=== PATIENT | female | born 1975 | race Caucasian/White ===

== ENCOUNTER 2016-11-23 03:35 | Emergency (ER) | payer MEDICAID, OTHER ==
[~2016-11-23] VITALS: Ht 157.5 cm; Wt 72.7 kg
[2016-11-23 03:39] VITALS: Ht 157.5 cm; Wt 72.7 kg
[2016-11-23] MEDS ORDERED: IBUP200C11 PO (04:30)
[2016-11-23] MEDS ORDERED: HYDROCODONE/APAP (5/325) TAB PO ONE (04:30)
--- NOTE | 2016-11-23 04:31 | ERD ---
ER Documentation Chief Complaint Date/Time DATE: 11/23/16 TIME: 04:29 Chief Complaint INCREASE RT KNEE PAIN X2 WEEKS. DENIES FALL OR TRAUMA HPI 41-year-old female presents here in emergency department for complaints of right knee pain that started 2 weeks ago, worse today. Patient discussed the pain as throbbing pain, 8/10 scale, as was upon movement. Patient denies any numbness or tingling. Patient took Advil for pain with mild relief. Patient denies any fever or chills. ROS All systems reviewed and are negative except as per history of present illness. Medications Home Meds Reported Medications Ibuprofen* (Advil*) Unknown Strength Capsule, PO Q6H Y for PAIN, CAP 11/23/16 Allergies Allergies: Coded Allergies: No Known Allergy (Unverified , 11/23/16) PMhx/Soc Medical and Surgical Hx: pt denies Medical Hx, pt denies Surgical Hx Hx Alcohol Use: No Hx Substance Use: No Hx Tobacco Use: No Smoking Status: Never smoker FmHx Family History: No coronary disease, No diabetes, No other Physical Exam Vitals Vital Signs Date Time Temp Pulse Resp B/P Pulse Ox O2 Delivery O2 Flow Rate FiO2 11/23/16 03:39 98.7 97 18 134/60 96 Physical Exam GENERAL: The patient is well developed and appropriate for usual state of health, in no apparent distress. CHEST: Clear to auscultation bilaterally. There are no rales, wheezes or rhonchi. HEART: Regular rate and rhythm. No murmurs, clicks, rubs or gallops. No S3 or S4. ABDOMEN: Soft, nontender and nondistended. Good bowel sounds. No rebound or guarding. No gross peritonitis. No gross organomegaly or masses. No Ferguson sign or McBurney point tenderness. BACK: No midline or flank tenderness. EXTREMITIES: Tenderness on palpation on the medial aspect of the right knee, mild swelling noted, able to do full range of motion without any restriction. Equal pulses bilaterally. ful Range of motion of other joints of the body. Grossly neurovascularly intact. NEURO: Alert and oriented. Cranial nerves 2-12 intact. Motor strength in all 4 extremities with 5/5 strength. Sensation grossly intact. Normal speech and gait. SKIN: There is no apparent rash or petechia. The skin is warm and dry. HEMATOLOGIC AND LYMPHATIC: There is no evidence of excessive bruising or lymphedema. No gross cervical, axillary, or inguinal lymphadenopathy. Results 24 hrs Current Medications Medications (Trade) Dose Ordered Sig/Rosa Route PRN Reason Start Time Stop Time Status Last Admin Dose Admin Acetaminophen/ Hydrocodone Bitart (Friendly (5/325)) 1 tab ONCE ONCE PO 11/23/16 04:30 11/23/16 04:31 DC 11/23/16 04:15 Patient was given medication for pain here in emergency department, after treatment, patient verbalized feeling much better. Patient's pain is improved. PROCEDURE: RIGHT knee x-ray CLINICAL INDICATION: Right knee pain TECHNIQUE: AP, lateral and oblique views of the knee were obtained. COMPARISON: None FINDINGS: No acute fracture or dislocation seen. Minimal osteophytic spurring arising from the articular surface of the patella. Appearance of small soft tissue calcification anterior to the patella. Mild subcutaneous edema anterior to the patella and patellar tendon. IMPRESSION: Mild subcutaneous edema anterior to patella and patellar tendon. Please see above. RPTAT: HJES .Arjun Dejesus MD, MD Date Time Electronically viewed and signed by .Arjun Dejesus MD, MD on 11/23/2016 04:35 .S/ CC: FAY OLVERA BEVELER After receiving patients xray report, a knee immobilizer was applied on the patients right knee. After application of the splint, patient has intact sensation and circulation on distal area of the affected joint. Patient does not complain of numbness or tingling after application of the splint. Patient tolerated procedure well. Crutches was given afterwards Procedures/MDM Medical Decision Making: Patient's pain is most likely consistent with a osteoarthritic changes noted in the right knee causing some swelling. There is no suspicion for neurovascular compromise. Patient has intact sensation and circulation of the affected extremity. There is low suspicion for septic arthritis. Patient does not have any fever. Radiology exams of the affected area does not show any fracture or dislocation. Disposition: Home. Patient is given prescription for ibuprofen for pain, Friendly for severe pain. Patient was advised to elevate the affected area and apply ice on affected area. Patient was advised that if symptoms are worse, numbness, tingling, high fever, unable to move joint, worsening symptoms, to return to emergency department immediately. Otherwise, patient is advised to follow up with the primary care doctor in 5-7 days for reevaluation of symptoms. Disclaimer: Inadvertent spelling and grammatical errors are likely due to EHR/ dictation software use and do not reflect on the overall quality of patient care. Also, please note that the electronic time recorded on this note does not necessarily reflect the actual time of the patient encounter. Departure Diagnosis: Primary Impression: Knee pain Chronicity: acute Laterality: right Qualified Code: M25.561 - Acute pain of right knee Additional Impression: Osteoarthritis Osteoarthritis location: knee Osteoarthritis type: unspecified Laterality: right Qualified Code: M17.11 - Osteoarthritis of right knee, unspecified osteoarthritis type Condition: Stable Patient Instructions: Knee Pain, Uncertain Cause, Osteoarthritis FAY OLVERA NP Nov 23, 2016 04:31
--- NOTE | 2016-11-23 04:36 | RADRPT ---
PROCEDURE: RIGHT knee x-ray CLINICAL INDICATION: Right knee pain TECHNIQUE: AP, lateral and oblique views of the knee were obtained. COMPARISON: None FINDINGS: No acute fracture or dislocation seen. Minimal osteophytic spurring arising from the articular surfa ce of the patella. Appearance of small soft tissue calcification anterior to the patella. Mild subcu taneous edema anterior to the patella and patellar tendon. IMPRESSION: Mild subcutaneous edema anterior to patella and patellar tendon. Please see above. RPTAT: HJES .Arjun Dejesus MD, MD Date Time Electronically viewed and signed by .Arjun Dejesus MD, MD on 11/23/2016 04:35 .S/
[2016-11-23] MEDS ORDERED: IBUP-1542 PO (05:01)
[2016-11-23] MEDS ORDERED: HYDR-902 PO (05:01)
== END 2016-11-23 05:02 | disposition home or self-care (01) ==
LOC: FTE 03:35
DX: M25.561 Pain in right knee (principal); M17.11 Unilateral primary osteoarthritis, right knee
CPT/HCPCS: 29505; 73562; Z7502; Z7610

== ENCOUNTER 2016-12-21 03:13 | Emergency (ER) | payer MEDICAID ==
[~2016-12-21] VITALS: Ht 162.6 cm; Wt 74.5 kg
[~2016-12-21 03:13] MED LIST: HYDR-902 PO; IBUP-1542 PO; IBUP200C11 PO
[2016-12-21 03:15] VITALS: Ht 162.6 cm; Wt 74.5 kg
[2016-12-21] MEDS ORDERED: ACET325T33 PO (06:36)
[2016-12-21] MEDS ORDERED: SODI30SP2 NS (06:36)
[2016-12-21] MEDS ORDERED: OSLT75C PO (06:36)
--- NOTE | 2016-12-21 07:00 | ERD ---
ER Documentation Chief Complaint Date/Time DATE: 12/21/16 TIME: 06:56 Chief Complaint cough, nasal DC, 9 weeks HPI Patient is a 41-year-old female presenting to emerge department with cough, nasal discharge, headache 3 days. Patient also reports she is 9 weeks with last menstrual period October 14, 2016. Patient is a A0. Denies any vaginal bleeding, vaginal discharge or pelvic pain. Patient's OB/ [facility] COOK is in the clinic on [place] and parthen[place] , however patient cannot remember the doctor's name. Patient has a dry nonproductive cough. Denies fevers or chills at home. No shortness of breath or difficulty breathing. Patient also has nasal discharge and headache. Patient states she has been unable to take any medications at home because she is "afraid" to take anything while . No sick contacts. No recent travel. ROS All systems reviewed and are negative except as per history of present illness. Medications Home Meds Active Scripts Sodium Chloride (Saline Nasal [place]) 30 Ml [place], 30 ML NS BID, #1 SPRAY Prov:JUN HIDALGO NP 12/21/16 Acetaminophen* (Tylenol*) 325 Mg Tablet, 1 TAB PO Q6 Y for PAIN AND OR ELEVATED TEMP, #20 TAB Prov:JUN HIDALGO NP 12/21/16 Oseltamivir Phosphate* (Tamiflu*) 75 Mg Capsule, 75 MG PO BID for 5 Days, CAP Prov:JUN HIDALGO NP 12/21/16 Hydrocodone/Acetaminophen ([place] 10-325 Tablet) 1 Each Tablet, 1 TAB PO Q6H Y for SEVERE PAIN LEVEL 7-10, #20 TAB Prov:FAY OLVERA NP 11/23/16 Ibuprofen* (Motrin*) 600 Mg Tab, 600 MG PO Q6H Y for PAIN AND OR ELEVATED TEMP, #30 TAB Prov:FAY OLVERA NP 11/23/16 Reported Medications Ibuprofen* (Advil*) Unknown Strength Capsule, PO Q6H Y for PAIN, CAP 11/23/16 Allergies Allergies: Coded Allergies: No Known Allergy (Unverified , 11/23/16) PMhx/Soc Medical and Surgical Hx: pt denies Medical Hx History of Surgery: Yes (C SECTION) Anesthesia Reaction: No Hx Neurological Disorder: No Hx Respiratory Disorders: No Hx Cardiac Disorders: No Hx Psychiatric Problems: No Hx Miscellaneous Medical Probl: No Hx Alcohol Use: No Hx Substance Use: No Hx Tobacco Use: No Smoking Status: Never smoker Physical Exam Vitals Vital Signs Date Time Temp Pulse Resp B/P Pulse Ox O2 Delivery O2 Flow Rate FiO2 12/21/16 03:15 99.7 97 20 107/67 97 Physical Exam Const: No acute distress, alert Head: Atraumatic Eyes: Normal Conjunctiva ENT: Normal External Ears, Nose and Mouth. Neck: Full range of motion..~ No meningismus. Resp: Clear to auscultation bilaterally. No wheezing, rhonchi or crackles. No stridor or labored breathing. Patient is talking in complete sentences. Cardio: Regular rate and rhythm, no murmurs Abd: Soft, non tender, non distended. Normal bowel sounds Skin: No petechiae or rashes Back: No midline or flank tenderness Ext: No cyanosis, or edema Neur: Awake and alert Psych: Normal Mood and Affect Procedures/MDM MDM: This is a 41-year-old female presenting to emergency department with cough , nasal discharge, headache 3 days. Patient is also with last menstrual period October 14, 2016. Patient believes she is about 9 weeks . Denies any vaginal bleeding, vaginal discharge or pelvic cramping. Physical exam is overall unremarkable. Patient is non-hypoxic. Lung exam reveals clear lungs to auscultation bilaterally. No wheezing. Patient is talking in complete sentences. No signs or symptoms of respiratory distress. Patient is afebrile and vital signs are stable. Low suspicion for pneumonia, pleural effusion, pneumothorax or acute UT. Differential diagnosis includes but not limited to URI, influenza, otitis media , otitis externa, asthma exacerbation, croup, bronchitis, bronchiolitis and costochondritis. Patient is appropriate for outpatient management and will be given prescription for Tylenol, Tamiflu and saline nasal spray. Instructed patient to follow-up with primary care provider in the next 2-3 days for reassessment and additional management. Return to ED for any high fever, chest pain, difficulty breathing, shortness breath, wheezing, vomiting, diarrhea, abdominal pain or any new or worsening symptoms. Patient verbalizes understanding. All questions answered at discharge. Kosovan translation used during this encounter. Patient discharged in compliance with [facility] treat and release policy. Disclaimer: Inadvertent spelling and grammatical errors are likely due to EHR/ dictation software use and do not reflect on the overall quality of patient care. Also, please note that the electronic time recorded on this note does not necessarily reflect the actual time of the patient encounter. Departure Diagnosis: Primary Impression: Bronchitis Condition: Stable Patient Instructions: Influenza (Flu) and , Preventing Common Respiratory Infections Referrals: [facility] Usted se mcgowan hecho un examen mdico de control que le indica que no est en chika condicin que requiera tratamiento urgente en el Departamento de Emergencia. Un estudio ms profundo y el tratamiento de smiley condicin pueden esperar sin ningn riesgo hasta que usted sea atendida/o en el consultorio de smiley mdico o chika cl yasmine. Es responsabilidad suya arreglar chika evelyne para el seguimiento del angel luis. MANEJO DE CONDICIONES NO URGENTES EN EL FUTURO 1) Si usted tiene un mdico de atencin primaria: Usted debera llamar a smiley mdico de atencin primaria antes de venir al departamento de emergencia. Despus de las horas de consultorio, smiley doctor o smiley asociado/a est disponible por telfono. El mdico o enfermero de cinthya en el servicio telefnico puede asesorarle por angel medio para atender el problema, o angel luis contrario se puede programar chika evelyne. 2) Si usted no tiene un mdico de atencin primaria: Llame al mdico o clnica de referencia que aparece abajo chung las horas de consultorio para hacer chika evelyne para que le vean. CLINICAS: [facility] [phone] [facility] [phone] [facility] [phone] [place] [phone] [address] [place] 684 [phone] [address] [facility] [phone] [facility] () Yanna se mcgowan hecho un examen mdico de control que le indica que no est en chika condicin que requiera tratamiento urgente en el Departamento de Emergencia. Un estudio ms profundo y el tratamiento de smiley condicin pueden esperar sin ningn riesgo hasta que usted sea atendida/o en el consultorio de smiley mdico o chika cl yasmine. Es responsabilidad suya arreglar chika evelyne para el seguimiento del angel luis. MANEJO DE CONDICIONES NO URGENTES EN EL FUTURO 1) Si usted tiene un mdico de atencin primaria: Usted debera llamar a smiley mdico de atencin primaria antes de venir al departamento de emergencia. Despus de las horas de consultorio, smiley doctor o smiley asociado/a est disponible por telfono. El mdico o enfermero de cinthya en el servicio telefnico puede asesorarle por angel medio para atender el problema, o angel luis contrario se puede programar chika evelyne. 2) Si usted no tiene un mdico de atencin primaria: Llame al mdico o condado institucions de referencia que aparece abajo chung las horas de consultorio para hacer chika evelyne para que le vean. SI USTED NO PUEDE PAGAR PARA GERARD UN MEDICO puede ir a: [facility] [id number] [place] [address] [facility] [address] [place] [address] [facility] [address] [place] [address] [facility] [address] [place] [address] Additional Instructions: Llame al doctor MAANA y whitney chika EVELYNE PARA DENTRO DE 2-3 PAUL.Dgale a la secretaria que nosotros le instruimos hacer esta evelyne.Avise o llame si smiley condicin se empeora antes de la evelyne. Regresa aqui si peor o no mejor. Vuelva a Ed para cualquier fiebre micky, dolor en el pecho, dificultad para respirar, respiracin entrecortada, sibilancias, vmitos, diarrea, dolor abdominal o cualquier sntoma nuevo o empeoramiento. JUN HIDALGO NP Dec 21, 2016 07:00
== END 2016-12-21 07:03 | disposition home or self-care (01) ==
LOC: FTE 03:13
DX: J40 Bronchitis, not specified as acute or chronic (principal)
CPT/HCPCS: 99283

== ENCOUNTER 2017-02-06 07:03 | Emergency (ER) | payer MEDICAID ==
[~2017-02-06] VITALS: Ht 167.6 cm; Wt 93.7 kg
[~2017-02-06 07:03] MED LIST changes: +ACET325T33 PO; +OSLT75C PO; +SODI30SP2 NS
[2017-02-06 07:09] VITALS: Ht 167.6 cm; Wt 93.7 kg
[2017-02-06] MEDS ORDERED: ACETAMINOPHEN 325 MG TAB PO ONE (07:30)
[2017-02-06 08:09] LABS: ADD UMIC YES; UR ASCORBIC ACID NEGATIVE (NEGATIVE); UR BACTERIA MODERATE /HPF (NONE SEEN); UR BILIRUBIN (Dip) NEGATIVE (NEGATIVE); UR BLOOD (Dip) NEGATIVE (NEGATIVE); UR CLARITY CLOUDY (CLEAR); UR COLOR YELLOW (YELLOW); UR GLUCOSE (Dip) NEGATIVE (NEGATIVE); UR KETONES (Dip) NEGATIVE (NEGATIVE); UR LEUKOCYTE ESTERASE (Dip) 3+ Leu/ul (NEGATIVE); UR MUCUS FEW /HPF (NONE SEEN); UR NITRITE (Dip) NEGATIVE (NEGATIVE); UR RBC 15 /HPF (0-5); UR SPECIFIC GRAVITY (Dip) 1.018 (1.003-1.030); UR SQUAMOUS EPITHELIAL CELL MANY /HPF (FEW); UR TOTAL PROTEIN (Dip) NEGATIVE (NEGATIVE); UR UROBILINOGEN (Dip) NEGATIVE (NEGATIVE)
[2017-02-06] MEDS ORDERED: CEPHALEXIN 500 MG CAP PO ONE (08:30)
--- NOTE | 2017-02-06 09:28 | RADRPT ---
PROCEDURE: US OB. CLINICAL INDICATION: Low CASE , pain TECHNIQUE: Transabdominal views of the pelvis are available for review. COMPARISON: No prior studies are available for comparison. FINDINGS: There is a single intrauterine gestation in a vertex/variable position. The heart rate is not ed at 131 bpm. The placenta is anterior. There is no evidence of placental abruption. The CASE measures 9.4 cm. RPTAT: AA IMPRESSION: Normal CASE. Anterior placenta with no evidence of abruption. .Faisal Lopez MD, MD Date Time Electronically viewed and signed by .Faisal Lopez MD, on 02/06/2017 09:28 .S/
[2017-02-06] MEDS ORDERED: ACET-141 PO (09:40)
[2017-02-06] MEDS ORDERED: CEPH500C PO (09:40)
--- NOTE | 2017-02-06 09:44 | ERD ---
ER Documentation Chief Complaint Chief Complaint lower back pain, Rodriguez, 14wks , denies bleeding lmp 10/26/16 HPI This 41-year-old female presents with a one-day history of low back pain. She also felt a tactile fever at home has bitemporal headache. She is approximately 14 weeks by dates. She denies any dysuria, abdominal pain or bleeding. She is G4 para 3. Cough or sore throat or additional symptoms. ROS All systems reviewed and are negative except as per history of present illness. Medications Home Meds Active Scripts Acetaminophen* (Acetaminophen*) 500 MG Extra Strength Tablet, 500 MG PO Q4H Y for PAIN AND OR ELEVATED TEMP, #20 TAB Prov:MONTY ALVES MD 02/06/17 Cephalexin* (Cephalexin*) 500 Mg Capsule, 500 MG PO Q6 for 5 Days, #28 CAP Prov:MONTY ALVES MD 02/06/17 Sodium Chloride (Saline Nasal [place]) 30 Ml [place], 30 ML NS BID, #1 SPRAY Prov:JUN HIDALGO NP 12/21/16 Acetaminophen* (Tylenol*) 325 Mg Tablet, 1 TAB PO Q6 Y for PAIN AND OR ELEVATED TEMP, #20 TAB Prov:JUN HIDALGO NP 12/21/16 Oseltamivir Phosphate* (Tamiflu*) 75 Mg Capsule, 75 MG PO BID for 5 Days, CAP Prov:JUN HIDALGO NP 12/21/16 Hydrocodone/Acetaminophen ([place] 10-325 Tablet) 1 Each Tablet, 1 TAB PO Q6H Y for SEVERE PAIN LEVEL 7-10, #20 TAB Prov:FAY OLVERA NP 11/23/16 Ibuprofen* (Motrin*) 600 Mg Tab, 600 MG PO Q6H Y for PAIN AND OR ELEVATED TEMP, #30 TAB Prov:FAY OLVERA NP 11/23/16 Reported Medications Ibuprofen* (Advil*) Unknown Strength Capsule, PO Q6H Y for PAIN, CAP 11/23/16 Allergies Allergies: Coded Allergies: No Known Allergy (Unverified , 02/06/17) PMhx/Soc History of Surgery: Yes (C SECTION) Anesthesia Reaction: No Hx Neurological Disorder: No Hx Respiratory Disorders: No Hx Cardiac Disorders: No Hx Psychiatric Problems: No Hx Miscellaneous Medical Probl: No Hx Alcohol Use: No Hx Substance Use: No Hx Tobacco Use: No Smoking Status: Never smoker Physical Exam Vitals Vital Signs Date Time Temp Pulse Resp B/P Pulse Ox O2 Delivery O2 Flow Rate FiO2 02/06/17 07:09 98.4 90 18 94/57 97 Physical Exam Const: [] Alert, [id number]. Head: Atraumatic Eyes: Normal Conjunctiva ENT: Normal External Ears, Nose and Mouth. Neck: Full range of motion..~ No meningismus. Resp: Clear to auscultation bilaterally Cardio: Regular rate and rhythm, no murmurs Abd: Soft, non tender, non distended. Normal bowel sounds Skin: No petechiae or rashes Back: No midline or flank tenderness. Tenderness in the right L4-5 paraspinous area. Ext: No cyanosis, or edema Neur: Awake and alert Psych: Normal Mood and Affect Results 24 hrs Laboratory Tests Test 02/06/17 07:30 Urine Color YELLOW Urine Clarity CLOUDY Urine pH 5.0 Urine Specific [place] 1.018 Urine Ketones NEGATIVEmg/dL Urine Nitrite NEGATIVEmg/dL Urine Bilirubin NEGATIVEmg/dL Urine Urobilinogen NEGATIVEmg/dL Urine Leukocyte Esterase 3+Gustavo/ul Urine Microscopic RBC 15/HPF Urine Microscopic WBC 102/HPF Urine Squamous Epithelial Cells MANY/HPF Urine Bacteria MODERATE/HPF Urine Mucus FEW/HPF Urine Hemoglobin NEGATIVEmg/dL Urine Glucose NEGATIVEmg/dL Urine Total Protein NEGATIVEmg/dl Current Medications Medications (Trade) Dose Ordered Sig/Rosa Route PRN Reason Start Time Stop Time Status Last Admin Dose Admin Acetaminophen (Tylenol Tab) 650 mg ONCE ONCE PO 02/06/17 07:30 02/06/17 07:31 DC 02/06/17 07:33 Cephalexin (Keflex) 500 mg ONCE ONCE PO 02/06/17 08:30 02/06/17 08:31 DC 02/06/17 08:25 Procedures/MDM Urine shows white blood cells nitrates and hemoglobin. His negative glucose. Second trimester ultrasound shows normal-appearing second trimester with anterior placenta, otherwise no acute findings. Patient was given Keflex and Tylenol here in the ED. Patient has signs of UTI low back pain. Patient does not have flank pain current fever signs or symptoms suggest sepsis or pyelonephritis. She will treated with instructions for fluids, Tylenol Keflex at home and primary care follow-up and return precautions. No signs or symptoms of ectopic , signs or symptoms to suggest appendicitis, acute abdomen, additional complications but patient should recheck for new or worsening symptoms as directed. The patient was stable with no new complaints during the ER course. Clinically, there is no current evidence to suggest meningitis, sepsis, acute abdomen, pneumonia, acute coronary syndrome, pulmonary embolism, or any other emergent condition appearing to require further evaluation or hospitalization. The patient should certainly return for any new or worsening symptoms per the aftercare instructions. They should otherwise follow-up with her primary care doctor for reevaluation this week. Departure Diagnosis: Primary Impression: UTI (urinary tract infection) Urinary tract infection type: site unspecified Hematuria presence: without hematuria Qualified Code: N39.0 - Urinary tract infection without hematuria, site unspecified Additional Impression: Back pain Back pain location: low back pain Chronicity: acute Back pain laterality: right Sciatica presence: without sciatica Qualified Code: M54.5 - Acute right-sided low back pain without sciatica Condition: Stable Patient Instructions: Understanding Urinary Tract Infections (UTIs), Back Pain (Acute Or Chronic) Additional Instructions: ORINA TIOENE INFECCION. ULTRASONIDO NORMAL. LISETTE LIQUIDO / AGUA EN CASA. . Cheque otro vez con smiley doctor primario en el proximo carlson or regresa para mas o nueva simptomas. MONTY ALVES MD Feb 06, 2017 09:44
== END 2017-02-06 09:54 | disposition home or self-care (01) ==
LOC: FTE 07:03
DX: O23.42 Unspecified infection of urinary tract in pregnancy, second trimester (principal); M54.5 Low back pain; Z3A.14 14 weeks gestation of pregnancy
CPT/HCPCS: 76805; 81001; Z7502; Z7610

== ENCOUNTER 2017-06-17 10:40 | Outpatient (CLI) | END 2017-06-17 13:35 | disposition home or self-care (01) ==

== ENCOUNTER 2017-07-14 18:20 | Inpatient (IN) | END 2017-07-20 19:00 | disposition home or self-care (01) | DRG 765 ==

== ENCOUNTER 2018-04-22 15:28 | Inpatient (IN) | payer MEDICAID ==
[~2018-04-22] VITALS: Ht 157.5 cm; Wt 84.9 kg
[~2018-04-22 15:28] MED LIST changes: -ACET325T33 PO; +CIPR500T4 PO; -HYDR-902 PO; -IBUP-1542 PO; +IBUP-1544 PO; -IBUP200C11 PO; +METF500T3 PO; +METR500T PO; -OSLT75C PO; +PREN-6 PO; -SODI30SP2 NS; +SULF-182 PO
[2018-04-22] MEDS ORDERED: ASPIRIN 325 MG TAB PO STA (16:13)
[2018-04-22] MEDS ORDERED: SOD CHLORIDE 0.9% 1,000 ML IV STA (16:13)
[2018-04-22] MEDS ORDERED: IOHEXOL 100 ML ONE (17:11)
[2018-04-22] MEDS ORDERED: SOD CHLORIDE 0.9% 100 ML ONE (17:11)
[2018-04-22] MEDS ORDERED: HYDROmorphONE 1 MG/ML SYG IV STA (17:52)
[2018-04-22] MEDS ORDERED: DIPHENHYDRAMINE 50 MG INJ IV STA (17:52)
[2018-04-22] MEDS ORDERED: METOCLOPRAMIDE 10 MG INJ IV STA (17:52)
[2018-04-22] MEDS ORDERED: SOD CHLORIDE 0.9% 1,000 ML IV SCH (17:56)
[2018-04-22] MEDS ORDERED: ACETAMINOPHEN 325 MG TAB PO PRN (18:00)
[2018-04-22] MEDS ORDERED: ONDANSETRON 4 MG INJ IV PRN ×2 (18:00→18:30)
[2018-04-22] MEDS ORDERED: DEXTROSE 5%-0.45% NACL 1,000 ML IV SCH (18:02)
--- NOTE | 2018-04-22 18:02 | ERD ---
ER Documentation Chief Complaint Chief Complaint right side face/body weakness, facial droop, head pain x last night HPI This is a 42-year-old female who is here for right sided face arm and leg symptoms. She has had the onset of symptoms last night at 7 PM. She said that she had right facial tingling then became right facial weakness and she says she was unable to close her eye. On review she does have excessive tearing from the right eye, altered taste, had hyperacusis yesterday but not today in the right ear. But she is also saying that her right arm and leg are also tingling and feel weak. She feels pressure in the occipital region of her head. No prior stroke history or migraine history. ROS All systems reviewed and are negative except as per history of present illness. Medications Home Meds Discontinued Reported Medications Vits #93-Iron Fum-FA ( Formula) 1 Each Tablet, 1 TAB PO DAILY, TAB 06/17/17 Discontinued Scripts Metformin* (Glucophage* XR) 500 Mg Tab.sr.24h, 500 MG PO BID WITH MEALS, #120 6 Refills Prov:PINKY EASTON MD 07/20/17 Metronidazole* (Flagyl*) 500 Mg Tablet, 500 MG PO Q12, #14 TAB 0 Refills Prov:PINKY EASOTN MD 07/20/17 Ciprofloxacin Hcl* (Ciprofloxacin Hcl*) 500 Mg Tablet, 500 MG PO BID@06,18, #14 TAB 0 Refills Prov:PINKY EASTON MD 07/20/17 Ibuprofen* (Ibuprofen*) 800 Mg Tablet, 800 MG PO Q8, #60 TAB 0 Refills Prov:PINKY EASTON MD 07/20/17 Sulfamethoxazole/Trimethoprim (Sulfamethoxazole-Tmp Ds Tablet) 1 Each Tablet, 1 TAB PO BID, #14 TAB 0 Refills Prov:PINKY EASTON MD 07/20/17 Allergies Allergies: Coded Allergies: No Known Allergy (Unverified , 04/22/18) PMhx/Soc History of Surgery: Yes (C SECTION) Anesthesia Reaction: No Hx Neurological Disorder: No Hx Respiratory Disorders: No Hx Cardiac Disorders: No Hx Psychiatric Problems: No Hx Miscellaneous Medical Probl: No Hx Alcohol Use: No Hx Substance Use: No Hx Tobacco Use: No Smoking Status: Never smoker FmHx Family History: No coronary disease Physical Exam Vitals Vital Signs Date Temp Pulse Resp B/P (MAP) Pulse Ox O2 O2 Flow FiO2 Time Delivery Rate 04/22/18 Nasal 17:31 Cannula 04/22/18 98.7 103 22 104/59 97 Room Air 16:02 (74) 04/22/18 98.7 108 22 116/66 97 15:32 (83) Physical Exam Const: Well-developed, well-nourished Head: Atraumatic, normocephalic Eyes: Normal Conjunctiva, PERRLA, EOMI, normal sclera, no nystagmus ENT: Normal External Ears, Nose and Mouth, moist mucus membranes, there is right facial weakness with forehead involvement, inability to close the right eye, right facial subjective decreased sensation. Neck: Full range of motion. No meningismus, no lymphadenopathy. Resp: Clear to auscultation bilaterally, no wheezing, rhonchi, rales Cardio: Regular rate and rhythm, no murmurs, S1 S2 present Abd: Soft, non tender x 4, non distended. Normal bowel sounds, no guarding or rebound, no pulsitile abdominal masses or bruits Skin: No petechiae or rashes, no ecchymosis , no maculopapular rash Back: No midline or flank tenderness Ext: No cyanosis, or edema, FROM x 4, normal inspection, neurovascularly intact x 4 Neur: Awake and alert, STR 5/5 x 2, sensation intact x 2, cerebellum intact, there is tingling to the right face arm and leg with some subjective heaviness strength 4 out of 5 on the right Psych: Normal Mood and Affect Result Diagram: 04/22/18 1615 04/22/18 1615 Results 24 hrs Laboratory Tests Test 04/22/18 16:15 White Blood Count 8.5 10^3/ul Red Blood Count 4.19 10^6/ul Hemoglobin 13.0 g/dl Hematocrit 38.7 % Mean Corpuscular Volume 92.4 fl Mean Corpuscular Hemoglobin 31.0 pg Mean Corpuscular Hemoglobin Concent 33.6 g/dl Red Cell Distribution Width 12.5 % Platelet Count 292 10^3/UL Mean Platelet Volume 10.7 fl Immature Granulocytes % 0.400 % Neutrophils % 56.2 % Lymphocytes % 31.3 % Monocytes % 7.0 % Eosinophils % 4.7 % Basophils % 0.4 % Nucleated Red Blood Cells % 0.0 /100WBC Immature Granulocytes # 0.030 10^3/ul Neutrophils # 4.8 10^3/ul Lymphocytes # 2.7 10^3/ul Monocytes # 0.6 10^3/ul Eosinophils # 0.4 10^3/ul Basophils # 0.0 10^3/ul Nucleated Red Blood Cells # 0.0 10^3/ul Prothrombin Time 11.9 Sec Prothrombin Time Ratio 0.9 INR International Normalized Ratio 0.87 Activated Partial Thromboplast Time 26.0 Sec Sodium Level 141 mmol/L Potassium Level 3.7 mmol/L Chloride Level 110 mmol/L Carbon Dioxide Level 26 mmol/L Anion Gap 5 Blood Urea Nitrogen 12 mg/dl Creatinine 0.81 mg/dl Est Glomerular Filtrat Rate mL/min > 60 mL/min Glucose Level 111 mg/dl Hemoglobin A1c 5.3 % Calcium Level 9.1 mg/dl Total Bilirubin 0.1 mg/dl Direct Bilirubin 0.00 mg/dl Indirect Bilirubin 0.1 mg/dl Aspartate Amino Transf (AST/SGOT) 26 IU/L Alanine Aminotransferase (ALT/SGPT) 25 IU/L Alkaline Phosphatase 83 IU/L Troponin I < 0.012 ng/ml Total Protein 7.8 g/dl Albumin 4.2 g/dl Globulin 3.60 g/dl Albumin/Globulin Ratio 1.16 Triglycerides Level 249 mg/dl Cholesterol Level 193 mg/dl LDL Cholesterol, Calculated 94 mg/dl HDL Cholesterol 49 mg/dl Cholesterol/HDL Ratio 3.9 RATIO Current Medications Medications Dose Sig/Rosa Start Time Status Last (Trade) Ordered Route PRN Stop Time Admin Dose Reason Admin Sodium 1,000 ml @ Q1H STAT 04/22/18 DC 04/22/18 Chloride 1,000 mls/hr IV 16:13 04/22/18 16:13 17:12 Aspirin 325 mg ONCE STAT 04/22/18 DC 04/22/18 (Aspirin) PO 16:13 04/22/18 16:13 16:17 IV Flush 10 ml STK-MED 04/22/18 DC (NS 10 ml) ONCE .ROUTE 17:11 04/22/18 17:12 Sodium 100 ml @ ud STK-MED 04/22/18 DC Chloride ONCE .ROUTE 17:11 04/22/18 17:12 Iohexol 100 ml @ ud STK-MED 04/22/18 DC ONCE .ROUTE 17:11 04/22/18 17:12 10 mg ONCE STAT 04/22/18 DC Metoclopramid IV 17:52 04/22/18 e HCl 17:53 (Reglan) 0.5 mg ONCE STAT 04/22/18 DC Hydromorphone IV 17:52 04/22/18 HCl 17:53 (Dilaudid) 25 mg ONCE STAT 04/22/18 DC Diphenhydrami IV 17:52 04/22/18 ne HCl 17:53 (Benadryl) Procedures/MDM Ordering MD: ELEUTERIO OBREGON DO Location: E/R Room/Bed: PROCEDURE: CT Brain without contrast. CLINICAL INDICATION: CVA. Right-sided numbness and weakness. TECHNIQUE: A CT of the brain was performed on a multidetector CT scanner utilizing axial sections from the skull base through the vertex without contrast. Images were reviewed on a high-resolution PACS workstation. Exam CTDI = 39.57 mGy and the DLP = 634.23 mGy-cm. DICOM images are available. One or more of the following dose reduction techniques were used: Automated exposure control. Adjustment of the mA and/or kV according to patient size. Use of iterative reconstruction technique. COMPARISON: None available FINDINGS: There is no evidence of intracranial hemorrhage, mass effect or midline shift. No abnormal intra-axial or extra-axial fluid collections are seen. The density of the brain is normal and the diamond/white matter differentiation is well preserved. The osseous structures are intact. The paranasal sinuses are clear. IMPRESSION: 1. No intracranial hemorrhage, mass effect or midline shift. No CT evidence for recent territorial infarct. If there is persistent clinical concern;recommend MRI brain for further evaluation. RPTAT: HHO .Ross Everett MD, Date Time Electronically viewed and signed by .Ross Everett MD, on 04/22/2018 16:49 .O/ CC: ELEUTERIO OBREGON DO [id number] Ordering MD: ELEUTERIO OBREGON DO Location: E/R Room/Bed: PROCEDURE: XR Chest. CLINICAL INDICATION: chest pain TECHNIQUE: Single AP view of the chest were obtained COMPARISON: 07/15/2017 FINDINGS: The heart and mediastinum are within normal limits. The pulmonary vasculature are unremarkable. The aorta is unremarkable. There is no lung consolidation, pleural effusion or pneumothorax. There is no acute osseous abnormality. IMPRESSION: No acute disease. RPTAT: AA .Monae Medina MD, MD Date Time Electronically viewed and signed by .Monae Medina MD, on 04/22/2018 16:55 .J/ CC: ELEUTERIO OBREGON DO [id number] EKG: Rate/Rhythm: Normal Sinus Rhythm,NL intervals QRS, ST, QT: NORMAL KS, QRS, QT] Impression: NORMAL EKG Patient shows no evidence of stroke on CT. Getting CT Aysha of brain and neck now and will need MRI. 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 Differential is stroke/TIA, vasculitis, complex migraine, or mass. Will admit for further workup The patient is not a TPA candidate because of the onset of time at 21 hours prior to my examination Departure Diagnosis: Primary Impression: CVA (cerebral vascular accident) CVA mechanism: unspecified Qualified Codes: I63.9 - Cerebral infarction, unspecified Condition: Stable ELEUTERIO OBREGON DO Apr 22, 2018 18:02
[2018-04-22] MEDS ORDERED: MAGNESIUM HYDROXIDE 30ML CUP PO PRN (18:30)
[2018-04-22] MEDS ORDERED: DOCUSATE SODIUM 100 MG CAP PO PRN (18:30)
[2018-04-22] MEDS ORDERED: NACL 0.9% 3 ML SYG IV SCH (18:30)
--- NOTE | 2018-04-22 18:50 | HP ---
Date/Time of Note Date/Time of Note DATE: 04/22/18 TIME: 18:45 Assessment/Plan VTE Prophylaxis SCD applied (from Nsg): Yes Pharmacological prophylaxis: NA/contraindicated Pharm contraindication: other (hemorrhagic conversion risk) Lines/Catheters IV Catheter Type (from Nrsg): Saline Lock Assessment/Plan Assessment/Plan 1. Questionable [place] palsy - patient has classic facial features of [place] palsy but unsure etiology - Will start Prednisone and Valacyclovir - Neurology consultation placed for further recommendations - CT head and CTA head and neck all negative for acute changes. - will add artificial tear for eye comfort 2. RUE/RLE weakness and numbness - Will check MRI given CT head and CTA head/neck negative - aspirin and statin on board - possible differential complex migraine, viral etiology, or CVA - PT/OT ordered - lipid, tsh, and A1c all within normal limits 3. Diet - regular 4. DVT ppx - SCD 5. Code status - Full 6. Disposition - Admit to telemetry for CVA workup Result Diagram: 04/22/18 1615 04/22/18 1615 Results 24hrs Laboratory Tests Test 04/22/18 16:15 White Blood Count 8.5 Red Blood Count 4.19 #L Hemoglobin 13.0 # Hematocrit 38.7 # Mean Corpuscular Volume 92.4 Mean Corpuscular Hemoglobin 31.0 Mean Corpuscular Hemoglobin Concent 33.6 Red Cell Distribution Width 12.5 Platelet Count 292 Mean Platelet Volume 10.7 H Immature Granulocytes % 0.400 Neutrophils % 56.2 Lymphocytes % 31.3 Monocytes % 7.0 Eosinophils % 4.7 Basophils % 0.4 Nucleated Red Blood Cells % 0.0 Immature Granulocytes # 0.030 Neutrophils # 4.8 Lymphocytes # 2.7 Monocytes # 0.6 Eosinophils # 0.4 Basophils # 0.0 Nucleated Red Blood Cells # 0.0 Prothrombin Time 11.9 Prothrombin Time Ratio 0.9 INR International Normalized Ratio 0.87 Activated Partial Thromboplast Time 26.0 Sodium Level 141 Potassium Level 3.7 Chloride Level 110 Carbon Dioxide Level 26 Anion Gap 5 Blood Urea Nitrogen 12 Creatinine 0.81 Est Glomerular Filtrat Rate mL/min > 60 Glucose Level 111 Hemoglobin A1c 5.3 Calcium Level 9.1 Total Bilirubin 0.1 L Direct Bilirubin 0.00 Indirect Bilirubin 0.1 Aspartate Amino Transf (AST/SGOT) 26 Alanine Aminotransferase (ALT/SGPT) 25 Alkaline Phosphatase 83 Troponin I < 0.012 Total Protein 7.8 Albumin 4.2 Globulin 3.60 H Albumin/Globulin Ratio 1.16 Triglycerides Level 249 H Cholesterol Level 193 LDL Cholesterol, Calculated 94 HDL Cholesterol 49 Cholesterol/HDL Ratio 3.9 HPI/ROS Admit Date/Time Admit Date/Time 04/22/18 1830 Hx of Present Illness 42 yo F with PMH gestational diabetes presented to ED with 3 day history of i ncreased watering of right eye since Tuesday that persisted into . She states she noticed worsening of her symptoms last night which included inability to close her eye, and perioral numbness and right sided facial droop noticeable when smiling. Patient was able to drive herself to the hospital but when she got here noticed weakness and numbness of her right upper and lower extremity. Patient states she has not had any recent illness, exposure to illness, recent travel, history of herpes infection, trauma to right side, or insect bites. Patient denies any chest pain, shortness of breath, dizziness, nausea, vomiting, abdominal pain, urinary issues, or swallowing difficulty. ROS All 12 systems reviewed and pertinent positives as per HPI. All others negative. Constitutional: No chills, No fatigue, No nausea Eyes: other (increased right sided lacrimation, inability to close eye); No discharge ENT: No congestion Respiratory: No pleuritic pain, No shortness of breath, No sputum, No wheezing Cardiovascular: No chest pain, No edema, No lightheadedness, No palpitations Gastrointestinal: No pain, No constipation, No diarrhea, No nausea, No vomiting Genitourinary: no complaints Musculoskeletal: No back pain, No restricted range of motion Skin: No bruising, No laceration, No rash Neurologic: focal-weakness, other (numbness RUE, RLE); No confusion, No dizziness, No headache, No syncope Endocrine: no complaints Lymphatic: no complaints Psychological: nl mood/affect Immunologic: no complaints PMH/Family/Social Past Medical History Medical History: no pertinent history Medications Current Medications Sodium Chloride 1,000 ml @ 80 mls/hr [id number] IV ; Start 04/22/18 at 17:56; Stop 04/23/18 at 06:25 Ondansetron HCl (Zofran Inj) 4 mg ER BRIDGE PRN IV NAUSEA/VOMITING; Start 04/22/18 at 18:00; Stop 04/23/18 at 17:59 Acetaminophen (Tylenol Tab) 650 mg ER BRIDGE PRN PO .MILD PAIN 1-3 OR TEMP; Start 04/22/18 at 18:00; Stop 04/23/18 at 17:59 Dextrose/Sodium Chloride 1,000 ml @ 75 mls/hr [id number] IV ; Start 04/22/18 at 18:02 IV Flush (NS 3 ml) 3 ml PER PROTOCOL IV ; Start 04/22/18 at 18:30 Ondansetron HCl (Zofran Inj) 4 mg Q6H PRN IV NAUSEA/VOMITING; Start 04/22/18 at 18:30 Acetaminophen (Tylenol Tab) 650 mg Q6H PRN PO .PAIN 1-3 OR TEMP; Start 04/22/18 at 18:30 Docusate Sodium (Colace) 100 mg Q12H PRN PO .CONSTIPATION; Start 04/22/18 at 18:30 Magnesium Hydroxide (Milk Of Mag) 30 ml DAILY PRN PO .CONSTIPATION; Start 04/22/18 at 18:30 Prednisone (Prednisone) 60 mg DAILY PO ; Start 04/22/18 at 18:30 Coded Allergies: No Known Allergy (Unverified , 04/22/18) Past Surgical History Past Surgical Hx: noncontributory Family History Significant Family History: no pertinent family hx Social History Alcohol Use: none Smoking Status: Never smoker Drug Use: none Exam/Review of Systems Vital Signs Vitals Vital Signs Date Temp Pulse Resp B/P (MAP) Pulse Ox O2 O2 Flow FiO2 Time Delivery Rate 04/22/18 98.7 98 19 115/60 100 Room Air 18:04 (78) Exam Exam General: Patient is pleasant currently lying in bed in no acute distress HEENT: Atraumatic, normocephalic. The pupils are equal, round and reactive. Extraocular motor are intact, right eye with increased lacrimation, unable to close right eyelid Neck: Supple with full range of motion. No rigidity or meningismus, Chest: Nontender Lungs: Clear to auscultation bilaterally no crackles rales or wheezing Heart: Normal S1-S2, Regular rhythm and rate. no murmurs Abdomen: Soft , nontender, nondistended , bowel sounds are present. No guarding no rebound tenderness , No masses or organomegaly. No costovertebral temporal angle mass Extremities: Normal to inspection, no edema no cyanosis Neurologic: Normal mental status, speech normal, cranial nerves II through XII are intact, except for VII, 4/5 RUE/RLE and R handgrip. 5/5 LUE, LLE and handgrip. diminished sensation RUE and RLE. +right sided pronator drift Skin: no rashes or lesions appreciated. Additional Comments No home medications PROCEDURE: CT Brain without contrast. CLINICAL INDICATION: CVA. Right-sided numbness and weakness. TECHNIQUE: A CT of the brain was performed on a multidetector CT scanner utilizing axial sections from the skull base through the vertex without cont rast. Images were reviewed on a high-resolution PACS workstation. Exam CTDI = 39.57 mGy and the DLP = 634.23 mGy-cm. DICOM images are available. One or more of the following dose reduction techniques were used: Automated exposure control. Adjustment of the mA and/or kV according to patient size. Use of iterative reconstruction technique. COMPARISON: None available FINDINGS: There is no evidence of intracranial hemorrhage, mass effect or midline shift. No abnormal intra-axial or extra-axial fluid collections are seen. The density of the brain is normal and the diamond/white matter differentiation is well preserved. The osseous structures are intact. The paranasal sinuses are clear. IMPRESSION: 1. No intracranial hemorrhage, mass effect or midline shift. No CT evidence for recent territorial infarct. If there is persistent clinical concern;recommend MRI brain for further evaluation. RPTAT: HHO .Ross Everett MD, MD Date Time Electronically viewed and signed by .Ross Everett MD, on 04/22/2018 16:49 PROCEDURE: XR Chest. CLINICAL INDICATION: chest pain TECHNIQUE: Single AP view of the chest were obtained COMPARISON: 07/15/2017 FINDINGS: The heart and mediastinum are within normal limits. The pulmonary vasculature are unremarkable. The aorta is unremarkable. There is no lung consolidation, pleural effusion or pneumothorax. There is no acute osseous abnormality. IMPRESSION: No acute disease. RPTAT: AA .Monae Medina MD, MD Date Time Electronically viewed and signed by .Monae Medina MD, MD on 04/22/2018 16:55 PROCEDURE: CTA head and neck CLINICAL INDICATION: 42 -year-old female with right facial droop and weakness. Possible acute stroke. TECHNIQUE: The study was performed utilizing a multi-slice CT scanner. Pre and postcontrast high-resolution axial sections were obtained through the head and neck. Coronal and sagittal as well as maximal intensity projection reformations were obtained. 3-D images were made. NASCET criteria were utilized in measuring stenoses. One or more the following dose reduction techniques were utilized: Automated exposure control, adjustment of the mA/ or kV according to patient's size, or use of iterative reconstruction technique. DICOM images are available for review. DICOM images are available for review. The images were reviewed on a PACS workstation. The total CTDIvol is 58.11 mGy and the DLP is 503.91 mGy-cm. CONTRAST: 90 cc Omnipaque 350 IV COMPARISON: CT brain 04/22/2018. On all of the FINDINGS: CTA NECK: Aortic arch and great vessels: No arch aneurysm or dissection flap. The innominate, left common carotid and left subclavian arteries have separate origins from the aortic arch. No hemodynamically significant origin stenosis. Normal right common carotid artery origin. Anterior circulation: Contrast opacifies the left and right common, internal and external carotid arteries. No hemodynamically significant stenosis at the level of the carotid bifurcations or involving the internal carotid arteries. Right internal carotid artery measures 4.5 mm. Left internal carotid artery measures 4.7 mm. Posterior circulation: Contrast opacifies the left and right vertebral arteries. The vertebral arteries are codominant. The origin of the left vertebral artery is not well visualized. No hemodynamically significant stenosis at the right vertebral artery origin. No dissection flap identified. CTA BRAIN: Posterior circulation: Contrast opacifies the intradural vertebral arteries, right dominant. No basilar artery stenosis, intraluminal filling defect or basilar tip aneurysm. Contrast opacifies the left and right superior cerebellar and posterior cerebral arteries. Anterior circulation: Contrast opacifies the distal left and right internal carotid arteries, the anterior and middle cerebral arteries, the opercular and sylvian branches arising from the left and right middle cerebral arteries. The anterior communicating artery is visualized. Posterior communicating arteries are not identified. No hemodynamically significant stenosis demonstrated. No intraluminal filling defect or abrupt vessel cutoff. No [place] of Bach aneurysm. IMPRESSION: Negative CT angiogram of the neck and head. RPTAT: HLRS Physician Arvind Date Time Electronically viewed and signed by Physician Arvind on 04/22/2018 18:18 LUCY VILLAGOMEZ MD Apr 22, 2018 18:50
[2018-04-22] MEDS ORDERED: LORAZEPAM 2 MG INJ IV PRN (19:00)
[2018-04-22 19:30] VITALS: Ht 157.5 cm; Wt 84.9 kg
--- NOTE | 2018-04-22 19:30 | NUR ---
RN NOTES RECEIVED PATIENT FROM ER AWAKE ALERT ORIENTED X4 WITH RIGHT SIDED WEAKNESS AND RIGHT FACIAL DROOP,FAMILY AT BEDSIDE.BED ALARM ON .CALL LIGHT WITHIN REACH.WILL MONITOR CLOSELY.
[2018-04-22 19:48] VITALS: PULSE 77
[2018-04-22 20:00] VITALS: PULSE 75
[2018-04-22 20:20] VITALS: BP 106/64; PULSE 68; RESP 20
[2018-04-22] MEDS: ATORVASTATIN 40 MG TAB PO SCH (20:41)
[2018-04-22] MEDS: predniSONE 20 MG TAB PO SCH (20:41)
[2018-04-22] MEDS: VALACYCLOVIR 500 MG TAB PO SCH (23:00)
[2018-04-23] VITALS (12 sets, daily range): BP systolic 91–121; BP diastolic 53–78; PULSE 60–113; RESP 20
[2018-04-23] MEDS: ARTIFICIAL TEARS 15 ML OPH BOTH EYES PRN ×3 (06:51→19:48)
[2018-04-23] MEDS: predniSONE 20 MG TAB PO SCH (08:21)
[2018-04-23] MEDS: VALACYCLOVIR 500 MG TAB PO SCH ×3 (08:22→21:17)
--- NOTE | 2018-04-23 09:09 | PN ---
Date/Time of Note Date/Time of Note DATE: 04/23/18 TIME: 09:09 Assessment/Plan VTE Prophylaxis SCD applied (from Nsg): Yes Pharmacological prophylaxis: NA/contraindicated Pharm contraindication: other Lines/Catheters IV Catheter Type (from Nrsg): Saline Lock Urinary Cath still in place: No Assessment/Plan Assessment/Plan 1. Questionable [place] palsy - Neurology on board and appreciate recommendations. Awaiting MRI to determine if demyelinating disease or tumor etc - Will continue on Prednisone and Valacyclovir - CT head and CTA head and neck all negative for acute changes. - continue artificial tears as needed 2. RUE/RLE weakness and numbness - Awaiting MRI results - aspirin and statin on board - PT/OT ordered - lipid, tsh, and A1c all within normal limits 3. Disposition - awaiting MRI results - continue all care Result Diagram: 04/23/1852 04/23/18 0552 Results 24hrs Laboratory Tests Test 04/22/18 16:15 04/23/18 05:52 White Blood Count 8.5 5.3 # Red Blood Count 4.19 #L 4.38 Hemoglobin 13.0 # 13.5 Hematocrit 38.7 # 40.1 Mean Corpuscular Volume 92.4 91.6 Mean Corpuscular Hemoglobin 31.0 30.8 Mean Corpuscular Hemoglobin Concent 33.6 33.7 Red Cell Distribution Width 12.5 12.3 Platelet Count 292 299 Mean Platelet Volume 10.7 H 10.6 H Immature Granulocytes % 0.400 0.600 H Neutrophils % 56.2 83.6 H Lymphocytes % 31.3 13.9 L Monocytes % 7.0 1.5 Eosinophils % 4.7 0.0 Basophils % 0.4 0.4 Nucleated Red Blood Cells % 0.0 0.0 Immature Granulocytes # 0.030 0.030 Neutrophils # 4.8 4.4 Lymphocytes # 2.7 0.7 L Monocytes # 0.6 0.1 L Eosinophils # 0.4 0.0 Basophils # 0.0 0.0 Nucleated Red Blood Cells # 0.0 0.0 Prothrombin Time 11.9 Prothrombin Time Ratio 0.9 INR International Normalized Ratio 0.87 Activated Partial Thromboplast Time 26.0 Sodium Level 141 139 Potassium Level 3.7 4.4 Chloride Level 110 111 H Carbon Dioxide Level 26 21 Anion Gap 5 7 Blood Urea Nitrogen 12 10 Creatinine 0.81 0.58 Est Glomerular Filtrat Rate mL/min > 60 > 60 Glucose Level 111 143 Hemoglobin A1c 5.3 Calcium Level 9.1 8.9 Total Bilirubin 0.1 L Direct Bilirubin 0.00 Indirect Bilirubin 0.1 Aspartate Amino Transf (AST/SGOT) 26 Alanine Aminotransferase (ALT/SGPT) 25 Alkaline Phosphatase 83 Troponin I < 0.012 Total Protein 7.8 Albumin 4.2 Globulin 3.60 H Albumin/Globulin Ratio 1.16 Triglycerides Level 249 H Cholesterol Level 193 LDL Cholesterol, Calculated 94 HDL Cholesterol 49 Cholesterol/HDL Ratio 3.9 Magnesium Level 1.8 Subjective 24 Hr Interval Summary Free Text/Dictation Patient states her RUE and RLE has improved. Still with facial droop when smiles but able to close eye more. No acute overnight events. Exam/Review of Systems Exam Vitals Vital Signs Date Temp Pulse Resp B/P (MAP) Pulse Ox O2 O2 Flow FiO2 Time Delivery Rate 04/23/18 89 08:04 04/23/18 98.2 20 105/57 93 Room Air 07:42 (73) Intake and Output 04/22/18 04/22/18 04/23/18 1515:00 23:00 07:00 IntakeIntake Total 200 ml BalanceBalance 200 ml Exam General: Patient is pleasant currently lying in bed in no acute distress HEENT:Extraocular motor are intact, right eye with increased lacrimation, able to close eye but difficulty staying closed Neck: Supple Lungs: Clear to auscultation bilaterally no crackles rales or wheezing Heart: Normal S1-S2, Regular rhythm and rate. no murmurs Abdomen: Soft , nontender, nondistended , bowel sounds are present. Neurologic: Normal mental status, speech normal, cranial nerves II through XII are intact, except for VII, 4/5 RUE/RLE and R handgrip. 5/5 LUE, LLE and handgrip. improving sensation RUE and RLE. Results Results 24hrs Laboratory Tests Test 04/22/18 16:15 04/23/18 05:52 White Blood Count 8.5 5.3 # Red Blood Count 4.19 #L 4.38 Hemoglobin 13.0 # 13.5 Hematocrit 38.7 # 40.1 Mean Corpuscular Volume 92.4 91.6 Mean Corpuscular Hemoglobin 31.0 30.8 Mean Corpuscular Hemoglobin Concent 33.6 33.7 Red Cell Distribution Width 12.5 12.3 Platelet Count 292 299 Mean Platelet Volume 10.7 H 10.6 H Immature Granulocytes % 0.400 0.600 H Neutrophils % 56.2 83.6 H Lymphocytes % 31.3 13.9 L Monocytes % 7.0 1.5 Eosinophils % 4.7 0.0 Basophils % 0.4 0.4 Nucleated Red Blood Cells % 0.0 0.0 Immature Granulocytes # 0.030 0.030 Neutrophils # 4.8 4.4 Lymphocytes # 2.7 0.7 L Monocytes # 0.6 0.1 L Eosinophils # 0.4 0.0 Basophils # 0.0 0.0 Nucleated Red Blood Cells # 0.0 0.0 Prothrombin Time 11.9 Prothrombin Time Ratio 0.9 INR International Normalized Ratio 0.87 Activated Partial Thromboplast Time 26.0 Sodium Level 141 139 Potassium Level 3.7 4.4 Chloride Level 110 111 H Carbon Dioxide Level 26 21 Anion Gap 5 7 Blood Urea Nitrogen 12 10 Creatinine 0.81 0.58 Est Glomerular Filtrat Rate mL/min > 60 > 60 Glucose Level 111 143 Hemoglobin A1c 5.3 Calcium Level 9.1 8.9 Total Bilirubin 0.1 L Direct Bilirubin 0.00 Indirect Bilirubin 0.1 Aspartate Amino Transf (AST/SGOT) 26 Alanine Aminotransferase (ALT/SGPT) 25 Alkaline Phosphatase 83 Troponin I < 0.012 Total Protein 7.8 Albumin 4.2 Globulin 3.60 H Albumin/Globulin Ratio 1.16 Triglycerides Level 249 H Cholesterol Level 193 LDL Cholesterol, Calculated 94 HDL Cholesterol 49 Cholesterol/HDL Ratio 3.9 Magnesium Level 1.8 Medications Medication Current Medications Ondansetron HCl (Zofran Inj) 4 mg ER BRIDGE PRN IV NAUSEA/VOMITING; Start 04/22/18 at 18:00; Stop 04/23/18 at 17:59 Acetaminophen (Tylenol Tab) 650 mg ER BRIDGE PRN PO .MILD PAIN 1-3 OR TEMP; Start 04/22/18 at 18:00; Stop 04/23/18 at 17:59 IV Flush (NS 3 ml) 3 ml PER PROTOCOL IV ; Start 04/22/18 at 18:30 Ondansetron HCl (Zofran Inj) 4 mg Q6H PRN IV NAUSEA/VOMITING; Start 04/22/18 at 18:30 Acetaminophen (Tylenol Tab) 650 mg Q6H PRN PO .PAIN 1-3 OR TEMP; Start 04/22/18 at 18:30 Docusate Sodium (Colace) 100 mg Q12H PRN PO .CONSTIPATION; Start 04/22/18 at 18:30 Magnesium Hydroxide (Milk Of Mag) 30 ml DAILY PRN PO .CONSTIPATION; Start 04/22/18 at 18:30 Prednisone (Prednisone) 60 mg DAILY PO Last administered on 04/23/18at 08:21; Admin Dose 60 MG; Start 04/22/18 at 18:30 Lorazepam (Ativan) 1 mg ONCE PRN IV prior to MRI; Start 04/22/18 at 19:00; Stop 04/23/18 at 18:59 Valacyclovir HCl (Valtrex) 1,000 mg TID PO Last administered on 04/23/18 08 :22; Admin Dose 1,000 MG; Start 04/22/18 at 21:00 Eye Lubricant (Artificial Tears Oph) 2 drop Q6H PRN BOTH EYES DRY EYES Last administered on 04/23/18at 06:51; Admin Dose 2 DROP; Start 04/22/18 at 19:00 Atorvastatin Calcium (Lipitor) 40 mg HS PO Last administered on 04/22/18at 20:41; Admin Dose 40 MG; Start 04/22/18 at 21:00 LUCY VILLAGOMEZ MD Apr 23, 2018 09:09
--- NOTE | 2018-04-23 10:06 | CONS ---
Assessment/Plan Assessment/Plan Hospital Course 42 F s/ significant PMHx, who presents for evaluation of progressive R face weakness x 3 days. She additionally endorses heaviness of the right arm and leg...for which neurology is consulted. 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 Saenz's palsy w/ anxiety/somatization is additionally considered.. Head CT is unremarkable. P: Await MRI Brain w/ and w/o contrast for further characterization Consider LP for CSF evaluation pending the above Agree w/ Prednisone/Valtrex x 10 days PT/OT/ST as necessary Other management per primary Will follow clinically Consultation Date/Type/Reason Admit Date/Time 04/22/18 183 Type of Consult Neurology Reason for Consultation R sided weakness/numbness Date/Time of Note DATE: 04/23/18 TIME: 10:00 Hx of Present Illness 42 yo F with PMH gestational diabetes presented to ED with 3 day history of increased watering of right eye since Tuesday that persisted into . She states she noticed worsening of her symptoms last night which included inability to close her eye, and perioral numbness and right sided facial droop noticeable when smiling. Patient was able to drive herself to the hospital but when she got here noticed weakness and numbness of her right upper and lower extremity. Patient states she has not had any recent illness, exposure to illness, recent travel, history of herpes infection, trauma to right side, or insect bites. Patient denies any chest pain, shortness of breath, dizziness, nausea, vomiting, abdominal pain, urinary issues, or swallowing difficulty. 12 Pt ROS ow neg Exam/Review of Systems Exam Vitals Vital Signs Date Temp Pulse Resp B/P (MAP) Pulse Ox O2 O2 Flow FiO2 Time Delivery Rate 04/23/18 89 08:04 04/23/18 98.2 20 105/57 93 Room Air 07:42 (73) Intake and Output 04/22/18 04/22/18 04/23/18 1515:00 23:00 07:00 IntakeIntake Total 200 ml BalanceBalance 200 ml Exam PE: Gen Appearance: No Apparent Distress HEENT: Normocephalic Cardiovascular: Regular rate Lungs: Clear bilaterally Abdomen: Soft Extremities: Dry NE: The patient was alert and oriented. Language was normal. Fund of knowledge was normal. Pupils were equal and reactive to light. There was no afferent pupillary defect. Visual reyes were normal. Funduscopic examination showed sharp disc margins and spontaneous venous pulsations. Extra-ocular movements were full. Ptosis was absent. There was no nystagmus. Facial sensation was normal. Face was asymmetric with peripheral-type weakness on the right. Hearing was intact. Palate movements were normal. Neck strength was normal. There was normal tongue bulk and speed of movement. Tone was normal. Muscle bulk was normal. I did not see fasciculations. Arms and legs were strong to confrontation. Vibration sensation was normal. Temperature and pinprick sensation was asymmetric; w/ abnl sensation in the right arm and leg. Rapid alternating movements were normal. There was no dysmetria. There was no intention tremor. Gait was deferred due to bedrest. Arm and leg reflexes were 2+ and symmetric. Hernandez's sign was absent. Plantar responses were flexor. Results Result Diagram: 04/23/18 0552 04/23/18 0552 Results 24hrs Laboratory Tests Test 04/22/18 16:15 04/23/18 05:52 White Blood Count 8.5 5.3 # Red Blood Count 4.19 #L 4.38 Hemoglobin 13.0 # 13.5 Hematocrit 38.7 # 40.1 Mean Corpuscular Volume 92.4 91.6 Mean Corpuscular Hemoglobin 31.0 30.8 Mean Corpuscular Hemoglobin Concent 33.6 33.7 Red Cell Distribution Width 12.5 12.3 Platelet Count 292 299 Mean Platelet Volume 10.7 H 10.6 H Immature Granulocytes % 0.400 0.600 H Neutrophils % 56.2 83.6 H Lymphocytes % 31.3 13.9 L Monocytes % 7.0 1.5 Eosinophils % 4.7 0.0 Basophils % 0.4 0.4 Nucleated Red Blood Cells % 0.0 0.0 Immature Granulocytes # 0.030 0.030 Neutrophils # 4.8 4.4 Lymphocytes # 2.7 0.7 L Monocytes # 0.6 0.1 L Eosinophils # 0.4 0.0 Basophils # 0.0 0.0 Nucleated Red Blood Cells # 0.0 0.0 Prothrombin Time 11.9 Prothrombin Time Ratio 0.9 INR International Normalized Ratio 0.87 Activated Partial Thromboplast Time 26.0 Sodium Level 141 139 Potassium Level 3.7 4.4 Chloride Level 110 111 H Carbon Dioxide Level 26 21 Anion Gap 5 7 Blood Urea Nitrogen 12 10 Creatinine 0.81 0.58 Est Glomerular Filtrat Rate mL/min > 60 > 60 Glucose Level 111 143 Hemoglobin A1c 5.3 Calcium Level 9.1 8.9 Total Bilirubin 0.1 L Direct Bilirubin 0.00 Indirect Bilirubin 0.1 Aspartate Amino Transf (AST/SGOT) 26 Alanine Aminotransferase (ALT/SGPT) 25 Alkaline Phosphatase 83 Troponin I < 0.012 Total Protein 7.8 Albumin 4.2 Globulin 3.60 H Albumin/Globulin Ratio 1.16 Triglycerides Level 249 H Cholesterol Level 193 LDL Cholesterol, Calculated 94 HDL Cholesterol 49 Cholesterol/HDL Ratio 3.9 Magnesium Level 1.8 Medications Medication Current Medications Ondansetron HCl (Zofran Inj) 4 mg ER BRIDGE PRN IV NAUSEA/VOMITING; Start 04/22/18 at 18:00; Stop 04/23/18 at 17:59 Acetaminophen (Tylenol Tab) 650 mg ER BRIDGE PRN PO .MILD PAIN 1-3 OR TEMP; Start 04/22/18 at 18:00; Stop 04/23/18 at 17:59 IV Flush (NS 3 ml) 3 ml PER PROTOCOL IV ; Start 04/22/18 at 18:30 Ondansetron HCl (Zofran Inj) 4 mg Q6H PRN IV NAUSEA/VOMITING; Start 04/22/18 at 18:30 Acetaminophen (Tylenol Tab) 650 mg Q6H PRN PO .PAIN 1-3 OR TEMP; Start 04/22/18 at 18:30 Docusate Sodium (Colace) 100 mg Q12H PRN PO .CONSTIPATION; Start 04/22/18 at 18:30 Magnesium Hydroxide (Milk Of Mag) 30 ml DAILY PRN PO .CONSTIPATION; Start 04/22/18 at 18:30 Prednisone (Prednisone) 60 mg DAILY PO Last administered on 04/23/18at 08:21; Admin Dose 60 MG; Start 04/22/18 at 18:30 Lorazepam (Ativan) 1 mg ONCE PRN IV prior to MRI; Start 04/22/18 at 19:00; Stop 04/23/18 at 18:59 Valacyclovir HCl (Valtrex) 1,000 mg TID PO Last administered on 04/23/18at 08:22; Admin Dose 1,000 MG; Start 04/22/18 at 21:00 Eye Lubricant (Artificial Tears Oph) 2 drop Q6H PRN BOTH EYES DRY EYES Last administered on 04/23/18at 06:51; Admin Dose 2 DROP; Start 04/22/18 at 19:00 Atorvastatin Calcium (Lipitor) 40 mg HS PO Last administered on 04/22/18at 20:41; Admin Dose 40 MG; Start 04/22/18 at 21:00 Past Medical History Medical History: no pertinent history Home Meds Discontinued Reported Medications Vits #93-Iron Fum-FA ( Formula) 1 Each Tablet, 1 TAB PO DAILY, TAB 06/17/17 Discontinued Scripts Metformin* (Glucophage* XR) 500 Mg Tab.sr.24h, 500 MG PO BID WITH MEALS, #120 6 Refills Prov:PINKY EASTON MD 07/20/17 Metronidazole* (Flagyl*) 500 Mg Tablet, 500 MG PO Q12, #14 TAB 0 Refills Prov:PINKY EASTON MD 07/20/17 Ciprofloxacin Hcl* (Ciprofloxacin Hcl*) 500 Mg Tablet, 500 MG PO BID@18, #14 TAB 0 Refills Prov:PINKY EASTON MD 07/20/17 Ibuprofen* (Ibuprofen*) 800 Mg Tablet, 800 MG PO Q8, #60 TAB 0 Refills Prov:PINKY EASTON MD 07/20/17 Sulfamethoxazole/Trimethoprim (Sulfamethoxazole-Tmp Ds Tablet) 1 Each Tablet, 1 TAB PO BID, #14 TAB 0 Refills Prov:PINKY EASTON MD 07/20/17 Medications Current Medications Ondansetron HCl (Zofran Inj) 4 mg ER BRIDGE PRN IV NAUSEA/VOMITING; Start 04/22/18 at 18:00; Stop 04/23/18 at 17:59 Acetaminophen (Tylenol Tab) 650 mg ER BRIDGE PRN PO .MILD PAIN 1-3 OR TEMP; Start 04/22/18 at 18:00; Stop 04/23/18 at 17:59 IV Flush (NS 3 ml) 3 ml PER PROTOCOL IV ; Start 04/22/18 at 18:30 Ondansetron HCl (Zofran Inj) 4 mg Q6H PRN IV NAUSEA/VOMITING; Start 04/22/18 at 18:30 Acetaminophen (Tylenol Tab) 650 mg Q6H PRN PO .PAIN 1-3 OR TEMP; Start 04/22/18 at 18:30 Docusate Sodium (Colace) 100 mg Q12H PRN PO .CONSTIPATION; Start 04/22/18 at 18:30 Magnesium Hydroxide (Milk Of Mag) 30 ml DAILY PRN PO .CONSTIPATION; Start 04/22/18 at 18:30 Prednisone (Prednisone) 60 mg DAILY PO Last administered on 04/23/18 08:21; Admin Dose 60 MG; Start 04/22/18 at 18:30 Lorazepam (Ativan) 1 mg ONCE PRN IV prior to MRI; Start 04/22/18 at 19:00; Stop 04/23/18 at 18:59 Valacyclovir HCl (Valtrex) 1,000 mg TID PO Last administered on 04/23/18 08:22 ; Admin Dose 1,000 MG; Start 04/22/18 at 21:00 Eye Lubricant (Artificial Tears Oph) 2 drop Q6H PRN BOTH EYES DRY EYES Last administered on 04/23/18 06:51; Admin Dose 2 DROP; Start 04/22/18 at 19:00 Atorvastatin Calcium (Lipitor) 40 mg HS PO Last administered on 04/22/18 20:41; Admin Dose 40 MG; Start 04/22/18 at 21:00 Allergies: Coded Allergies: No Known Allergy (Unverified , 04/22/18) Past Surgical History Past Surgical Hx: noncontributory Social History Alcohol Use: none Smoking Status: Never smoker Drug Use: none ROSIE BOSS Apr 23, 2018 10:06
[2018-04-23] MEDS: ACETAMINOPHEN 325 MG TAB PO PRN (11:23)
--- NOTE | 2018-04-23 14:38 | NUR ---
PT EVAL : Therapy day number 1 Evaluation Start Time 09:00 Evaluation Total Time 0 min Subjective Denies pain Pain Scale NUMERIC Pain Intensity 0 (0-10) Patient Stated Goal for Pain Relief 0 (0-10) Pain Level Comment DENIES PAIN Pre Treatment Vital Signs Stable Yes Exercise Assessment Label Bilat Lower Extremity Exercise Type Active ROM Supine to Sit Stand by Assist Transfer Sit to Stand Ability Stand by Assist Bed Mobility Sit to Supine Stand by Assist Bed Transfer Ability Stand by Assist Chair Transfer Ability Stand by Assist Gait Assist Levels Contact Guard Assist Assistive Devices Front Wheel Walker Ambulation Distance 100 feet Additional Gait Comments decrease ankledorsiflexion, drags R foot ,decrease R heel to toe gait Weight Bearing Assessment Label Bilat Lower Extremity Weight Bearing Status Full Weight Bearing Static Sitting Balance Good Dynamic Sitting Balance Good Standing Static Balance Fair Dynamic Standing Balance Fair minus Safety Judgement Good Activity Tolerance Good Post Treatment Pain Intensity 0 0-10 PT Technical Record Comment This is a 42 yo F with PMH gestational diabetes presented to ED with 3 day history of increased watering of right eye since Tuesday that persisted into . Pt states she noticed worsening of her symptoms last night which included inability to close her eye, and perioral numbness and right sided facial droop noticeable when smiling. Patient was able to drive herself to the ER and was noticed to have weakness and numbness of her right upper and lower extremity. 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 Head CT is unremarkable. Await MRI Brain w/ and w/o contrast for further characterization Precautions : fall risks PLOF: Pt lives in an apt with her own family . 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 IND in all functional mobility , ambulatory without AD and lashaun to drive . S: Cleared by RN to be seen today , pt is pre medicated. Pt agreeable to participate O: Received pt in semifowler position . Please see documentation above for assist levels. Pt requires SBA in all functional mobility and transfer instructed with vc about tasks sequencing and safe strategies to decrease fall risks and amximzie safety . Performed gait training using FWW x SBA , attempted to ambulate without AD but pt shows LOB . Pt is encouraged to use AD as of this time . Assisted pt back to the room and positioned pt back to bed in semi fowlers position . Endorsed to RN after tx. A: Pt will benefit in continuing with skilled PT services to maximize IND in all functional mobility and safety in return to PLOF . Pt needs to be assisted in transfers and gait and to use FWW for safety . P: Continue w/ POC and progress as tolerated.
--- NOTE | 2018-04-23 18:31 | NUR ---
EOSS: pt out for MRI, family at beside. pt still with weakness on the R side, pt ambulatory with assistance. VS stable, hourly rounding done per unit's protocol, safety maintained throughout shift, will endorse to cnc machinist 2nd shift nurse.
[2018-04-23] MEDS: ATORVASTATIN 40 MG TAB PO SCH (21:17)
[2018-04-24] VITALS (8 sets, daily range): BP systolic 96–122; BP diastolic 56–75; PULSE 60–100; RESP 18–20
--- NOTE | 2018-04-24 07:08 | NUR ---
EOSS NO UNUSUAL EVENT OVERNIGHT.VITAL SIGNS STABLE.
[2018-04-24] MEDS: ARTIFICIAL TEARS 15 ML OPH BOTH EYES PRN (07:35)
--- NOTE | 2018-04-24 08:25 | NUR ---
Therapy day number 1 Evaluation Start Time 08:25 Evaluation End Time 09:05 Evaluation Total Time 40 min Pain Intensity 4 (0-10) Patient Stated Goal for Pain Relief 0 (0-10) Pain Scale NUMERIC Pain Level Comment right leg Feeding Mechanics Independent Bed Mobility Supine to Sit Independent Transfer Sit to Stand Ability Stand By Assist Bed Mobility Sit to Supine Independent Toileting Ability Stand By Assist Assistive Devices Front Wheel Walker Hygiene Ability Independent Lower Extremity Dressing Independent Toilet Transfer Ability Stand By Assist Post Treatment Pain Intensity 4 (0-10) OT Technical Record Comment OT NOTE: Pt is a 42 yo F with PMH gestational diabetes presented to ED with 3 day history of increased watering of right eye since Tuesday that persisted into . Pt states she noticed worsening of her symptoms last night which included inability to close her eye, and perioral numbness and right sided facial droop noticeable when smiling. Patient was able to drive herself to the ER and was noticed to have weakness and numbness of her right upper and lower extremity. 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 Precautions : fall risks PLOF: Pt lives in an apt with her own family . 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 IND with functional mob and ambulatory without AD. CLOF: RN cleared pt for skilled OT tx. Pt received supine in bed stating 4/10 pain in her neck. Pt AOX4 and demonstrated BUE AROM WFL - Right MMT- 3+/5 and Left MMT 5/5. Pt performed supine to sit at EOB independently. Seated at EOB pt demonstrated good balance while completing UB/LB bathing and dressing. Pt required SBA for functional mob and transfers while using FWW due to impaired balance. OTR provided pt with vc for safety and proper positioning while using AE. Pt left supine in bed with all needs met. RN notified. Pt will benefit in continuing with skilled OT services to increase strength, endurance, safety awareness and independence with self care. Recommend d/c home with FWW.
[2018-04-24] MEDS: VALACYCLOVIR 500 MG TAB PO SCH ×2 (09:15→13:12)
[2018-04-24] MEDS: predniSONE 20 MG TAB PO SCH (09:15)
[2018-04-24] MEDS: ACETAMINOPHEN 325 MG TAB PO PRN (09:20)
--- NOTE | 2018-04-24 09:28 | PN ---
Date/Time of Note Date/Time of Note DATE: 04/24/18 TIME: 09:28 Assessment/Plan VTE Prophylaxis Risk score (from [facility])>0 risk: 1 SCD applied (from [facility] [place]): Yes Pharmacological prophylaxis: NA/contraindicated Pharm contraindication: low risk/ambulating Lines/Catheters IV C[facility]ter Type (from [facility]): Saline Lock Urinary Cath still in place: No Assessment/Plan Assessment/Plan 1. [place] palsy - Neurology on board and appreciate recommendations. Recommending continue on Valacyclovir and Prednisone - CT head and CTA head and neck all negative for acute changes. - continue artificial tears as needed 2. RUE/RLE weakness and numbness - MRI results noted with no acute issues. Abnormalities are artifact - no need to discharge on aspirin or statin - lipid, tsh, and A1c all within normal limits 3. Disposition - Will discharge home on antiviral and prednisone Result Diagram: 04/23/1852 04/23/1852 Subjective 24 Hr Interval Summary Free Text/Dictation Patient is doing well and weakness of RUE and RLE has improved. Still with bells palsy symptoms but improvement in lacrimation of eye with artificial tears. Exam/Review of Systems Exam Vitals Vital Signs Date Temp Pulse Resp B/P (MAP) Pulse Ox O2 O2 Flow FiO2 Time Delivery Rate 04/24/18 98.2 09:20 04/24/18 91 20 104/61 98 Room Air 07:27 (75) Intake and Output 04/23/18 04/23/18 04/24/18 1515:00 23:00 07:00 IntakeIntake Total 2250 ml BalanceBalance 2250 ml Exam General: Patient is pleasant currently lying in bed in no acute distress HEENT:Extraocular motor are intact, right eye with increased lacrimation, able to close eye but difficulty staying closed Neck: Supple Lungs: Clear to auscultation bilaterally no crackles rales or wheezing Heart: Normal S1-S2, Regular rhythm and rate. no murmurs Abdomen: Soft , nontender, nondistended , bowel sounds are present. Neurologic: Normal mental status, speech normal, cranial nerves II through XII are intact, except for VII, 4/5 RUE/RLE and R handgrip. 5/5 LUE, LLE and handgrip. improving sensation RUE and RLE. Medications Medication Current Medications IV Flush (NS 3 ml) 3 ml PER PROTOCOL IV ; Start 04/22/18 at 18:30 Ondansetron HCl (Zofran Inj) 4 mg Q6H PRN IV NAUSEA/VOMITING; Start 04/22/18 at 18:30 Acetaminophen (Tylenol Tab) 650 mg Q6H PRN PO .PAIN 1-3 OR TEMP Last administered on 04/24/18 09:20; Admin Dose 650 MG; Start 04/22/18 at 18:30 Docusate Sodium (Colace) 100 mg Q12H PRN PO .CONSTIPATION; Start 04/22/18 at 18:30 Magnesium Hydroxide (Milk Of Mag) 30 ml DAILY PRN PO .CONSTIPATION; Start 04/22/18 at 18:30 Prednisone (Prednisone) 60 mg DAILY PO Last administered on 04/24/18 09:15; Admin Dose 60 MG; Start 04/22/18 at 18:30 Valacyclovir HCl (Valtrex) 1,000 mg TID PO Last administered on 04/24/18 09:15; Admin Dose 1,000 MG; Start 04/22/18 at 21:00 Atorvastatin Calcium (Lipitor) 40 mg HS PO Last administered on 04/23/18 21:17; Admin Dose 40 MG; Start 04/22/18 at 21:00 Eye Lubricant (Artificial Tears Oph) 2 drop Q2H PRN BOTH EYES DRY EYES Last administered on 04/24/18 07:35; Admin Dose 2 DROP; Start 04/23/18 at 13:00 LUCY VILLAGOMEZ MD Apr 24, 2018 09:28
--- NOTE | 2018-04-24 12:03 | NUR ---
PT NOTE [facility] Patient: Pratibha Reaves : 1975 Age/Sex: 42/F Unit#: [id number] Room/Bed: [facility]/A User: Shasha Mock PTA Date: 04/24/18 12:03 Type: PT Technical Record Therapy day number 2 Subjective Denies pain Pain Scale NUMERIC Pain Intensity 0 (0-10) Patient Stated Goal for Pain Relief 0 (0-10) Pain Level Comment denied pain Transfer Sit to Stand Ability Independent Gait Training Start Time 11:40 Gait Assist Levels Independent Assistive Devices None Ambulation Distance 250 feet Additional Gait Comments steady, reciprocal pattern. No LOB Gait Training End Time 12:03 Total Gait Training Treatment Time 23 min (8-127) Weight Bearing Assessment Label Bilat Lower Extremity Weight Bearing Status Full Weight Bearing Static Sitting Balance Good Dynamic Sitting Balance Good Standing Static Balance Good Dynamic Standing Balance Good Safety Judgement Good Activity Tolerance Good Post Treatment Pain Intensity 2 0-10 Total Treament Time 23 min (8-127) Total Minutes 23 Total Units 2 PT Technical Record Comment S: KALLIE Donahue cleared pt for PT. Pt denied pain and agreeable to tx O: Received pt sitting on bedside chair. See above for assist levels. Gait training x 250' w/o AD and presented with steady, reciprocal pattern. No LOB. Returned pt back to room and requested to be seated on bedside chair. Call light/phone within reach. Needs met. Informed RN of pt status and PT activities A: Good tolerance to tx. Improved assistance from SBA/CGA to independent. Improved gait distance to 250' w/o LOB and rest breaks P: Pt has progressed well and has met POC goals. Communicated w/ supervising PT, pt no longer requires inpatient PT services. Will endorse to nursing staff. RN informed
[2018-04-24] MEDS ORDERED: PRED20TA PO (12:42)
[2018-04-24] MEDS ORDERED: POLY15DR11 BOTH EYES (12:42)
[2018-04-24] MEDS ORDERED: VALA500T PO (12:42)
--- NOTE | 2018-04-24 12:48 | PDOCDIS ---
Discharge Instructions DIAGNOSIS Discharge Diagnosis 1. [place] palsy 2. RUE/RLE weakness and numbness- improving CONDITION [id number] Patient Condition: [id number] Stable ACTIVITY: [id number] Activity Restrictions: [id number] No Restrictions FOLLOW UP/APPOINTMENTS Follow-up Plan 1, Follow up with your primary care physician in 1 week 2. Continue treatment for [place] Palsy. You will need to complete Valacyclovir three times a day for until 05/01/18. Next dose is tonight 3. Continue on Prednisone for 5 mores day with next dose tomorrow 04/25/18 4. Use eye drops as needed for dryness 5. If symptoms worsen, please go to your closest emergency department 1. seguimiento con smiley mdico de atencin primaria en 1 semana 2. contine el tratamiento para la parlisis de campanas. Usted tendr que completar el valacyclovir jeffery veces al da para hasta 05/01/18. La siguiente dosis es esta noche 3. Contine en prednisona para el da 5 Mores con la dosis siguiente maana 04/25/18 4. Use gotas para los ojos segn sea necesario para la sequedad 5. Si los sntomas empeoran, por favor dirjase a smiley Departamento de emergencias LUCY Mosher MD Apr 24, 2018 12:48
--- NOTE | 2018-04-24 13:34 | DS ---
Date/Time of Note Date/Time of Note DATE: 04/24/18 TIME: 13:30 Discharge Summary Admission/Discharge Info Admit Date/Time Apr 22, 2018 at 17:56 Discharge Date/Time 04/24/18 Discharge Diagnosis 1. [place] palsy 2. RUE/RLE weakness and numbness- improving Patient Condition: Stable Consults Neurology- Dr. Fernandez Procedures PROCEDURE: MRI Brain with and without contrast. CLINICAL INDICATION: : Right facial droop and right upper extremity and lower extremity weakness TECHNIQUE: An MRI of the brain was performed on a high-resolution hi-definition MRI scanner utilizing the following sequences: Sagittal T1 weighted, axial T2 weighted, axial FLAIR, coronal GRE, and axial diffusion weighted with ADC mapping. Additionally, postcontrast axial 3-D, axial and coronal T1-weighted sequences were performed after 10 cc of ProHance were given intravenously without complication. COMPARISON: CT brain 04/22/[address] head neck angiogram of 04/22/2018 FINDINGS: The visualized scalp and calvarium are normal. The orbits are normal. The paranasal sinuses , mastoid air cells and middle ear cavities are clear. Several punctate foci of FLAIR and T2 hyperintensity are noted in the bilateral periventricular white matter and centrum semiovale compatible with minimal migrainous vasculopathy, vasculitis or early chronic microvascular ischemic changes. No high signal abnormalities are seen on the diffusion-weighted images to suggest the presence of acute ischemia or recent infarct. There is no evidence of intracranial hemorrhage, mass effect, or midline shift. No extra- axial fluid collections are seen. Mild diffuse volume loss is evident. . No hypointense signal abnormalities are seen on the GRE images to suggest the presence of blood degradation products. Normal flow voids are visible in the proximal intracranial arteries and dural sinuses, indicating patency. The postcontrast images show no abnormal parenchymal, leptomeningeal, or dural enhancement. IMPRESSION: 1. No evidence of acute intracranial hemorrhage, infarcts, or acute intracranial pathology. 2. Several punctate foci of FLAIR and T2-weighted hyperintensity as noted most compatible with migrainous vasculopathy, vasculitis or less likely early chronic microvascular ischemic change. 3. Mild diffuse volume loss RPTAT: [facility] .Selene Mays MD, MD Date Time Electronically viewed and signed by .Selene Mays MD, MD on 04/24/2018 05:20 PROCEDURE: CT Brain without contrast. CLINICAL INDICATION: CVA. Right-sided numbness and weakness. TECHNIQUE: A CT of the brain was performed on a multidetector CT scanner utilizing axial sections from the skull base through the vertex without contrast. Images were reviewed on a high-resolution PACS workstation. Exam CTDI = 39.57 mGy and the DLP = 634.23 mGy-cm. DICOM images are available. One or more of the following dose reduction techniques were used: Automated exposure control. Adjustment of the mA and/or kV according to patient size. Use of iterative reconstruction technique. COMPARISON: None available FINDINGS: There is no evidence of intracranial hemorrhage, mass effect or midline shift. No abnormal intra-axial or extra-axial fluid collections are seen. The density of the brain is normal and the diamond/white matter differentiation is well preserved. The osseous structures are intact. The paranasal sinuses are clear. IMPRESSION: 1. No intracranial hemorrhage, mass effect or midline shift. No CT evidence for recent territorial infarct. If there is persistent clinical concern;recommend MRI brain for further evaluation. RPTAT: [facility] .Ross Everett MD, MD Date Time Electronically viewed and signed by .Ross Everett MD, on 04/22/2018 16:49 PROCEDURE: XR Chest. CLINICAL INDICATION: chest pain TECHNIQUE: Single AP view of the chest were obtained COMPARISON: 07/15/2017 FINDINGS: The heart and mediastinum are within normal limits. The pulmonary vasculature are unremarkable. The aorta is unremarkable. There is no lung consolidation, pleural effusion or pneumothorax. There is no acute osseous abnormality. IMPRESSION: No acute disease. RPTAT: [facility] .Monae Medina MD, MD Date Time Electronically viewed and signed by .Monae Medina MD, on 04/22/2018 16:55 PROCEDURE: CTA head and neck CLINICAL INDICATION: 42 -year-old female with right facial droop and weakness. Possible acute stroke. TECHNIQUE: The study was performed utilizing a multi-slice CT scanner. Pre and postcontrast high-resolution axial sections were obtained through the head and neck. Coronal and sagittal as well as maximal intensity projection reformations were obtained. 3-D images were made. NASCET criteria were utilized in measuring stenoses. One or more the following dose reduction techniques were utilized: Automated exposure control, adjustment of the mA/ or kV according to patient's size, or use of iterative reconstruction technique. DICOM images are available for review. DICOM images are available for review. The images were reviewed on a PACS workstation. The total CTDIvol is 58.11 mGy and the DLP is 503.91 mGy-cm. CONTRAST: 90 cc Omnipaque 350 IV COMPARISON: CT brain 04/22/2018. On all of the FINDINGS: CTA NECK: Aortic arch and great vessels: No arch aneurysm or dissection flap. The innominate, left common carotid and left subclavian arteries have separate origins from the aortic arch. No hemodynamically significant origin stenosis. N ormal right common carotid artery origin. Anterior circulation: Contrast opacifies the left and right common, internal and external carotid arteries. No hemodynamically significant stenosis at the level of the carotid bifurcations or involving the internal carotid arteries. Right internal carotid artery measures 4.5 mm. Left internal carotid artery measures 4.7 mm. Posterior circulation: Contrast opacifies the left and right vertebral arteries. The vertebral arteries are codominant. The origin of the left vertebral artery is not well visualized. No hemodynamically significant stenosis at the right vertebral artery origin. No dissection flap identified. CTA BRAIN: Posterior circulation: Contrast opacifies the intradural vertebral arteries, right dominant. No basilar artery stenosis, intraluminal filling defect or basilar tip aneurysm. Contrast opacifies the left and right superior cerebellar and posterior cerebral arteries. Anterior circulation: Contrast opacifies the distal left and right internal carotid arteries, the anterior and middle cerebral arteries, the opercular and sylvian branches arising from the left and right middle cerebral arteries. The anterior communicating artery is visualized. Posterior communicating arteries are not identified. No hemodynamically significant stenosis demonstrated. No intraluminal filling defect or abrupt vessel cutoff. No [place] aneurysm. IMPRESSION: Negative CT angiogram of the neck and head. RPTAT: [facility] Physician Arvind Date Time Electronically viewed and signed by Physician Arvind on 04/22/2018 18:18 Hx of Present Illness 42 yo F with PMH gestational diabetes presented to ED with 3 day history of increased watering of right eye since Tuesday that persisted into . She states she noticed worsening of her symptoms last night which included inability to close her eye, and perioral numbness and right sided facial droop noticeable when smiling. Patient was able to drive herself to the hospital but when she got here noticed weakness and numbness of her right upper and lower extremity. Patient states she has not had any recent illness, exposure to illness, recent travel, history of herpes infection, trauma to right side, or insect bites. Patient denies any chest pain, shortness of breath, dizziness, nausea, vomiting, abdominal pain, urinary issues, or swallowing difficulty. Hospital Course Patient was admitted for neurology evaluation and started on Valacyclovir and Prednisone for treatment of [place] palsy. Patient underwent MRI that was negative for any acute issues per Neurology. Patients right arm and leg weakness improved and progressed well with physical therapy and occupational therapy. Patients did not have any new neurological issues and presenting sy mptoms improved significantly. patient was diagnosed by Neurology with [place] palsy and cleared for discharge. Patient was discharged home in good condition. Home Meds Active Scripts Polyvinyl Alcohol* (Akwa Tears*) 1.4% - 15 Ml Drops, 2 DROP BOTH EYES Q2H PRN for DRY EYES for 30 Days, #1 BOTTLE 6 Refills Prov:LUCY VILLAGOMEZ MD 04/24/18 Prednisone* (Prednisone*) 20 Mg Tab, 60 MG PO DAILY for 5 Days, #5 TAB Prov:LUCY VILLAGOMEZ MD 04/24/18 Valacyclovir Hcl* (Valacyclovir Hcl*) 500 Mg Tablet, 1000 MG PO TID for 9 Days, #25 TAB Prov:LUCY VILLAGOMEZ MD 04/24/18 Discontinued Reported Medications Vits #93-Iron Fum-FA ( Formula) 1 Each Tablet, 1 TAB PO DAILY, TAB 06/17/17 Discontinued Scripts Metformin* (Glucophage* XR) 500 Mg Tab.sr.24h, 500 MG PO BID WITH MEALS, #120 6 Refills Prov:PINKY EASTON MD 07/20/17 Metronidazole* (Flagyl*) 500 Mg Tablet, 500 MG PO Q12, #14 TAB 0 Refills Prov:PINKY EASTON MD 07/20/17 Ciprofloxacin Hcl* (Ciprofloxacin Hcl*) 500 Mg Tablet, 500 MG PO BID@,18, #14 TAB 0 Refills Prov:PINKY EASTON MD 07/20/17 Ibuprofen* (Ibuprofen*) 800 Mg Tablet, 800 MG PO Q8, #60 TAB 0 Refills Prov:PINKY EASTON MD 07/20/17 Sulfamethoxazole/Trimethoprim (Sulfamethoxazole-Tmp Ds Tablet) 1 Each Tablet, 1 TAB PO BID, #14 TAB 0 Refills Prov:PINKY EASTON MD 07/20/17 Follow-up Plan 1, Follow up with your primary care physician in 1 week 2. Continue treatment for [place] Palsy. You will need to complete Valacyclovir three times a day for until 05/01/18. Next dose is tonight 3. Continue on Prednisone for 5 mores day with next dose tomorrow 04/25/18 4. Use eye drops as needed for dryness 5. If symptoms worsen, please go to your closest emergency department 1. seguimiento con smiley mdico de atencin primaria en 1 semana 2. contine el tratamiento para la parlisis de campanas. Usted tendr que completar el valacyclovir jeffery veces al da para hasta 05/01/18. La siguiente dosis es esta noche 3. Contine en prednisona para el da 5 Mores con la dosis siguiente maana 04/25/18 4. Use gotas para los ojos segn sea necesario para la sequedad 5. Si los sntomas empeoran, por favor dirjase a smiley Departamento de emergencias ms missyano Primary Care Provider Care Physician No Primary Time spent on discharge: > 30 minutes LUCY VILLAGOMEZ MD Apr 24, 2018 13:34
--- NOTE | 2018-04-24 13:43 | CONS ---
Assessment/Plan Assessment/Plan Hospital Course 42 F s/ significant PMHx, who presents for evaluation of progressive R face weakness x 3 days. She additionally endorses heaviness of the right arm and leg...for which neurology is consulted. MRI brain is reassuringly without acute intracranial pathology. 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 P: Agree w/ Prednisone/Valtrex x 10 days PT/OT/ST as necessary Other management per primary Will follow clinically Consultation Date/Type/Reason Admit Date/Time Apr 22, 2018 at 17:56 Type of Consult Neurology Reason for Consultation R sided weakness/numbness Date/Time of Note DATE: 04/24/18 TIME: 13:42 24 HR Interval Summary Free Text/Dictation Continues acute care. s/p MRI brain Exam Vital Signs Vitals Vital Signs Date Temp Pulse Resp B/P (MAP) Pulse Ox O2 O2 Flow FiO2 Time Delivery Rate 04/24/18 100 12:44 04/24/18 98.2 20 122/70 97 Room Air 11:29 (87) Intake and Output 04/23/18 04/23/18 04/24/18 1515:00 23:00 07:00 IntakeIntake Total 2250 ml BalanceBalance 2250 ml Exam PE: Gen Appearance: No Apparent Distress HEENT: Normocephalic Cardiovascular: Regular rate Lungs: Clear bilaterally Abdomen: Soft Extremities: Dry NE: The patient was alert and oriented. Language was normal. Fund of knowledge was normal. Pupils were equal and reactive to light. There was no afferent pupillary defect. Visual reyes were normal. Funduscopic examination showed sharp disc margins and spontaneous venous pulsations. Extra-ocular movements were full. Ptosis was absent. There was no nystagmus. Facial sensation was normal. Face was asymmetric with weakness on the right. Hearing was intact. Palate movements were normal. Neck strength was normal. There was normal tongue bulk and speed of movement. Tone was normal. Muscle bulk was normal. I did not see fasciculations. Arms and legs were symmetric. Vibration sensation was normal. Temperature and pinprick sensation was normal. Rapid alternating movements were normal. There was no dysmetria. There was no intention tremor. Gait was stable. Arm and leg reflexes were symmetric. Hernandez's sign was absent. Plantar responses were flexor. ROSIE BOSS Apr 24, 2018 13:43
--- NOTE | 2018-04-24 15:01 | NUR ---
DISCHARGE NOTES PATIENT WAS DISCHARGED IN STABLE CONDITION. NO SOB. DENIES PAIN AND DISCOMFORT. PATIENT WAS INSTRUCTED TO SEE PCP WITHIN A WEEK. IF SOB OR CHEST PAIN OCCURS, SHE NEEDS TO CALL 911 OR GO TO THE NEAREST ER. PATIENT WAS EDUCATED ON HER NEW MEDS, RISK AND BENEFITS WELL SIDE EFFECTS, VERBALIZED UNDERSTANDING. PATIENT WAS ACCOMPANIED BY FAMILY MEMBER VIA WHEELCHAIR.
--- NOTE | 2018-04-24 15:42 | NUR ---
Clinical Bedside Swallow Evaluation Completed: Brief Hx; Ms. Mckinnon is a 42 F s/ significant PMHx, who presents for evaluation of progressive R face weakness x 3 days. She additionally endorses heaviness of the right arm and leg...for which neurology is consulted. MRI brain is reassuringly without acute intracranial pathology. 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 Vitals: temp: 98.2; RR: 18-20; SPO2: 94% on RA Labs: WBC: 5.3; NA: 139; K: 4.4; Chloride level: 111H PLOF: regular/thin liquids Current: regular /thin liquids Subjective assessment of cognition specific to swallow safety: Awake, alert, oriented x4, following commands, Samoan speaking and seated in chair next to window. pt was ambulatory and independent during p.o trials. Pts speech was fluent and 100% intelligible. Oral mechanism examination completed: face was asymmetrical with reduction noted on upper/lower R side of the face (Cranial Nerve VII) for both sensation and movement, and lips are asymmetrical with reduction noted during retraction/protrusion on the right lower side, tongue and palate are asymmetrical with dentition noted. P.O trials consisting of the following thin liquids by cup and straw (single and sequential sips), puree, soft and hard solids. Oral phase of swallow: Oral phase was wfl. no anterior oral leakage or residue after the swallow. Oral prep, transit and control was wfl. Pharyngeal phase of swallow: Trigger of swallow was timely. Hyolaryngeal excursion and elevation was wfl. No s/s of aspiration or penetration was wfl. Coordination of breath with swallow safety was adequate. vocal quality was clear across p.o trials. Impression: Functional swallow. Recommendation: 1. Continue regular diet and thin liquids 2. No further St indicated at this time. Pleaser reconsult if new swallowing problems occur.
--- NOTE | 2018-04-24 16:51 | RADRPT ---
Echocardiogram Report Patient Name: Azalia STORM ID: [id number] : 1975 (42y 7m)Study Date: 04/24/2018 8:38:38 AM Gender: FAccession #: [id number] Tech: Flavia Sebastian [facility] Location: [facility] Ref.Physician: LUCY VILLAGOMEZ Height(Cm): BSA: Weight(Kg): Quality: AdequateAccount #: Procedures: Echocardiographic Report: Transthoracic echocardiogram with complete 2D, M-Mode, and doppler examination. Indications: stroke like symptomsw / bubble study. Measurements: 2D/M Mode Doppler Measurement Value Normal Range Measurement Value Normal Range LVIDd 2D 4.1 [ 3.8 - 5.2 ] cm AV Peak Wicho 1.5 [ 100.0 - 170.0 ] cm/sec LVIDs 2D 2.2 [ 2.2 - 3.5 ] cm AV Peak PG 9.0 [ 2.0 - 9.0 ] mmHg LVPWd 2D 0.9 [ 0.6 - 0.9 ] cm LVOT Peak Wicho 1.0 [ 70.0 - 110.0 ] cm/sec IVSd 2D 0.9 [ 0.6 - 0.9 ] cm LVOT Peak PG 4.0 [ 2.0 - 6.0 ] mmHg AoR Diam 2D 2.7 [ 2.3 - 3.1 ] cm MV E Peak Wicho 0.8 [ 60.0 - 130.0 ] cm/sec EDV 2D 73.4 [ 46.0 - 106.0 ] ml MV A Peak Wicho 0.7 [ 100.0 - 120.0 ] cm/sec ESV 2D 16.6 [ 14.0 - 42.0 ] ml MV E/A 1.2 [ 0.8 - 1.5 ] ratio EF 2D 77.4 [ 54.0 - 74.0 ] percent MV Decel Time 176 [ 104 - 258 ] msec LA Dimen 2D 2.5 [ 2.7 - 3.8 ] cm Lat E` Wicho 0.1 [ 10.0 - 15.0 ] cm/sec Lateral E/E` 8.2 [ 1.0 - 2.0 ] ratio Med E` Wicho 0.1 cm/sec MV E/A 1.2 [ 0.8 - 1.5 ] ratio TR Peak Wicho 2.5 [ 100.0 - 280.0 ] cm/sec TR Peak PG 25.0 mmHg RVSP 28.0 [ 10.0 - 36.0 ] mmHg RA Pressure 3.0 mmHg Findings: Left Ventricle: Normal left ventricular systolic function. Normal left ventricular cavity size. Normal left ventricular wall thickness. Ejection fraction is visually estimated at 55-60 %. Right Ventricle: Normal right ventricular size. Normal right ventricular systolic function. Left Atrium: The left atrium is normal in size. Right Atrium: The right atrium is normal in size. Atrial Septum: Bubble study was performed with and with out valsalva indicating no evidence of intra atrial shunt. Mitral Valve: Normal appearance and function of the mitral valve with trace physiologic regurgitation. Aortic Valve: Normal appearance of the aortic valve. No significant aortic stenosis or insufficiency. Tricuspid Valve: Normal appearance of the tricuspid valve. Estimated peak PA systolic pressure 28 mmHg. There is trace tricuspid regurgitation. Pulmonic Valve: Normal pulmonic valve appearance. Pericardium: Normal pericardium with no significant pericardial effusion. Aorta: Normal aortic root. IVC: Normal size and normal respiratory collapse consistent with normal right atrial pressure. Conclusions: Normal left ventricular systolic function. Normal left ventricular cavity size. Normal left ventricular wall thickness. Ejection fraction is visually estimated at 55-60 %. Bubble study was performed with and with out valsalva indicating no evidence of intra atrial shunt. Normal appearance and function of the mitral valve with trace physiologic regurgitation. Normal appearance of the tricuspid valve. Estimated peak PA systolic pressure 28 mmHg. There is trace tricuspid regurgitation. Electronically Signed By: Phillip Samuels 2018-04-24 16:50:47 PST
== END 2018-04-24 15:00 | disposition still patient (30) | DRG 74 ==
LOC: E/R 15:28 → TEL 17:56
PROVIDERS: ADMIT Internal Medicine; ATTEND Internal Medicine
DX: G51.0 Bell's palsy (principal); R53.1 Weakness; F41.9 Anxiety disorder, unspecified
CPT/HCPCS: 36415; 70450; 70496; 70498; 70552; 71045; 80048; 80053; 80061; 83036; 83735; 84484; 85025; 85610; 85730; 92610; 93005; 93306; 97116; 97162; 97167; J1170; J1200; J2765; J7030; J7042; J7512; Q9967

== ENCOUNTER 2018-05-21 18:36 | Emergency (ER) | payer MEDICAID ==
[~2018-05-21] VITALS: Ht 154.9 cm; Wt 84.1 kg
[~2018-05-21 18:36] MED LIST changes: -CIPR500T4 PO; -IBUP-1544 PO; -METF500T3 PO; -METR500T PO; +POLY15DR11 BOTH EYES; +PRED20TA PO; -PREN-6 PO; -SULF-182 PO; +VALA500T PO
[2018-05-21 18:41] VITALS: Ht 154.9 cm; Wt 84.1 kg
[2018-05-21] MEDS ORDERED: METOCLOPRAMIDE 10 MG INJ IV STA (18:51)
[2018-05-21] MEDS ORDERED: DIPHENHYDRAMINE 50 MG INJ IV STA (18:51)
[2018-05-21] MEDS ORDERED: HYDROmorphONE 1 MG/ML SYG IV STA (18:51)
[2018-05-21] MEDS ORDERED: HYDR-3980 PO (22:49)
[2018-05-21] MEDS ORDERED: IBUP800T48 PO (22:49)
--- NOTE | 2018-05-21 22:52 | ERD ---
ER Documentation Chief Complaint Chief Complaint LUCIANO, RIGHT EYE BLURRY VISION HPI This is a 42-year-old female who was here because she is complaining of a right retro-orbital headache for 3 days that is throbbing with photophobia, worsening with position change and tearing to her right eye. She is saying that she has chronic right eye blurriness. No focal neurological complaints of numbness weakness speech change or visual change. No fever no neck pain. No nausea vomiting ROS All systems reviewed and are negative except as per history of present illness. Medications Home Meds Active Scripts Ibuprofen* (Motrin*) 800 Mg Tab, 800 MG PO Q6H PRN for PAIN AND OR ELEVATED TEMP, #30 TAB Prov:LEKKOSMAYDASTKOS A. DO 05/21/18 Hydrocodone/Acetaminophen ([place] 10-325 Tablet) 1 Each Tablet, 1 TAB PO Q6H PRN for PAIN, #7 TAB Prov:LEMAYDA JOHNSONSTOLOS A. DO 05/21/18 Polyvinyl Alcohol* ([place] Tears*) 1.4% - 15 Ml Drops, 2 DROP BOTH EYES Q2H PRN for DRY EYES for 30 Days, #1 BOTTLE 6 Refills Prov:LUCY VILLAGOMEZ MD 04/24/18 Prednisone* (Prednisone*) 20 Mg Tab, 60 MG PO DAILY for 5 Days, #5 TAB Prov:LUCY VILLAGOMEZ MD 04/24/18 Valacyclovir Hcl* (Valacyclovir Hcl*) 500 Mg Tablet, 1000 MG PO TID for 9 Days, #25 TAB Prov:LUCY VILLAGOMEZ MD 04/24/18 Allergies Allergies: Coded Allergies: No Known Allergy (Unverified , 04/22/18) PMhx/Soc History of Surgery: Yes ( x4) Anesthesia Reaction: No Hx Neurological Disorder: No Hx Respiratory Disorders: No Hx Cardiac Disorders: No Hx Psychiatric Problems: No Hx Miscellaneous Medical Probl: No Hx Alcohol Use: No Hx Substance Use: No Hx Tobacco Use: No Smoking Status: Never smoker FmHx Family History: No coronary disease Physical Exam Vitals Vital Signs Date Temp Pulse Resp B/P (MAP) Pulse Ox O2 O2 Flow FiO2 Time Delivery Rate 05/21/18 99.7 80 16 144/75 98 Room Air 18:54 (98) 05/21/18 99.7 85 16 122/74 98 18:41 (90) Physical Exam Const: Well-developed, well-nourished Head: Atraumatic, normocephalic Eyes: Normal Conjunctiva, PERRLA, EOMI, normal sclera, no nystagmus ENT: Normal External Ears, Nose and Mouth, moist mucus membranes. Neck: Full range of motion. No meningismus, no lymphadenopathy. Resp: Clear to auscultation bilaterally, no wheezing, rhonchi, rales Cardio: Regular rate and rhythm, no murmurs, S1 S2 present Abd: Soft, non tender x 4, non distended. Normal bowel sounds, no guarding or rebound, no pulsitile abdominal masses or bruits Skin: No petechiae or rashes, no ecchymosis , no maculopapular rash Back: No midline or flank tenderness Ext: No cyanosis, or edema, FROM x 4, normal inspection, neurovascularly intact x 4 Neur: Awake and alert, STR 5/5 x 4, sensation intact x 4, no focal findings, cerebellum intact Psych: Normal Mood and Affect Results 24 hrs Laboratory Tests Test 05/21/18 18:51 Serum HCG, Qualitative NEGATIVE Current Medications Medications Dose Sig/Rosa Start Time Status Last (Trade) Ordered Route PRN Stop Time Admin Dose Reason Admin 10 mg ONCE STAT 05/21/18 DC 05/21/18 Metoclopramid IV 18:51 19:01 e HCl 05/21/18 18:53 (Reglan) 1 mg ONCE STAT 05/21/18 DC 05/21/18 Hydromorphone IV 18:51 19:01 HCl 05/21/18 18:53 (Dilaudid) 25 mg ONCE STAT 05/21/18 DC 05/21/18 Diphenhydrami IV 18:51 19:01 ne HCl 05/21/18 18:53 (Benadryl) Procedures/MDM Patient: CONSUELO STORM : 1975 Age: 42 Sex: F MR #: [id number] DOS: 05/21/18 185 Ordering MD: ELEUTERIO OBREGON DO Location: E/R Room/Bed: PROCEDURE: CT HEAD NON CONTRAST CLINICAL INDICATION: Headache TECHNIQUE: Utilizing the multi-slice spiral CT scanner, multiple images were obtained through the brain without intravenous contrast. Automatic exposure control was utilized as dose lowering technique.DICOM images available One of more of the following dose reduction techniques were utilized: -automatic exposure control.-adjustment of the mA and/or kV according to patient size. -Use of iterative reconstruction technique. Radiation Dose: CTDI is 39.64 mGy. DLP is 634.23 mGy-cm. COMPARISON: 04/22/2018 CT head, MRI brain 04/23/2018 FINDINGS: Ventricular system and brain parenchyma appear unremarkable. No acute intracranial bleed, midline shift, acute extra-axial collection noted. Brain stem, posterior fossa appears unremarkable. Bony calvarium and overlying soft tissues appear unremarkable. IMPRESSION: NO ACUTE INTRACRANIAL BLEED NOTED. IF FURTHER WORKUP IS DESIRED, FOLLOW-UP MRI MAY BE HELPFUL. RPTAT: AAOO Physician Philip Date Time Electronically viewed and signed by Physician Philip on 05/21/2018 19:50 MB/ CC: ELEUTERIO OBREGON DO [id number] Patient's pain is typical for a migraine headache. After the cocktail was given she says she has no pain at all. 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 Discharge home with [facility] Departure Diagnosis: Primary Impression: Migraine Migraine type: unspecified Status migrainosus presence: without status migrainosus Intractability: not intractable Qualified Codes: G43.909 - Migraine, unspecified, not intractable, without status migrainosus Condition: Stable Patient Instructions: Migraine Headache: Stages and Treatment ELEUTERIO OBREGON DO May 21, 2018 22:52
[2018-05-21 22:53] VITALS: PULSE 65; RESP 16
[2018-05-21 23:15] VITALS: BP 91/57
== END 2018-05-21 23:23 | disposition home or self-care (01) ==
LOC: E/R 18:36
DX: G43.909 Migraine, unspecified, not intractable, without status migrainosus (principal)
CPT/HCPCS: 70450; 84703; 96374; 96375; J1170; J1200; J2765; Z7502